=== PATIENT | female | born 1990 | race African-American/Black ===

== ENCOUNTER 2020-12-18 19:20 | Emergency (ER) | payer OTHER ==
[~2020-12-18] VITALS: Ht 154.9 cm; Wt 62.5 kg
[2020-12-18] MEDS ORDERED: GI COCKTAIL 50ML BTL(HYOSCYAMINE/MAALOX/LIDOCAINE VISCOUS)(1:3:1) PO ONE (20:45)
[2020-12-18] MEDS ORDERED: PANTOPRAZOLE 40MG TAB (PROTONIX) PO ONE (20:45)
[2020-12-18 21:03] LABS: BASO % 0.6 % (0.0-1.0); EOS # 0.1 10^3/uL (0.0-0.5); EOS % 0.9 % (0.0-3.0); HEMATOCRIT 38.8 % (36.0-47.0); HEMOGLOBIN 12.2 g/dl (12.0-15.5); LYMPH # 3.8 10^3/uL (1.5-5.0); LYMPH % 56.4 % (24.0-44.0); MEAN CORPUSCULAR HEMOGLOBIN 28.3 pg (27.0-33.0); MEAN CORPUSCULAR HGB CONC 31.4 g/dl (32.0-36.5); MONO # 0.4 10^3/uL (0.0-0.8); MONO % 6.5 % (2.0-8.0); NEUTROPHILS # 2.4 10^3/uL (1.5-8.5); NEUTROPHILS % 35.2 % (36.0-66.0); PLATELET COUNT, AUTOMATED 310 10^3/uL (150-450); RED BLOOD COUNT 4.31 10^6/uL (4.00-5.40); WHITE BLOOD COUNT 6.7 10^3/uL (4.0-10.0)
[2020-12-18] MEDS ORDERED: ISOVUE-370 76% 100ML VIAL As Ordered ONE (22:12)
--- NOTE | 2020-12-18 22:48 | REPVR ---
PROCEDURE INFORMATION: Exam: XR Chest, 2 Views Exam date and time: 12/18/2020 8:57 PM Age: 30 years old Clinical indication: Chest pain; Type not specified TECHNIQUE: Imaging protocol: XR of the chest Views: 2 views. COMPARISON: No relevant prior studies available. FINDINGS: Lungs: Unremarkable. No consolidation. Pleural spaces: Unremarkable. No pleural effusion. No pneumothorax. Heart/Mediastinum: Unremarkable. No cardiomegaly. Bones/joints: Unremarkable. IMPRESSION: Negative chest. Electronically signed by: Kirby Balderrama On 12/18/2020 22:48:47 PM
--- NOTE | 2020-12-18 23:13 | REPVR ---
PROCEDURE INFORMATION: Exam: CT Angiography Chest With Contrast Exam date and time: 12/18/2020 11:02 PM Age: 30 years old Clinical indication: Shortness of breath; Additional info: Elev d dimer, pleuritic cp, SOB TECHNIQUE: Imaging protocol: Computed tomographic angiography of the chest with contrast. 3D rendering (Not supervised by radiologist): MIP and/or 3D reconstructed images were created by the technologist. Radiation optimization: All CT scans at this facility use at least one of these dose optimization techniques: automated exposure control; mA and/or kV adjustment per patient size (includes targeted exams where dose is matched to clinical indication); or iterative reconstruction. Contrast material: ISOVUE 370; Contrast volume: 75 ml; Contrast route: INTRAVENOUS (IV); COMPARISON: CR Chest, 2 view PA, Lat 12/18/2020 8:41 PM FINDINGS: Pulmonary arteries: The main pulmonary artery measures 20 mm. No pulmonary embolism is identified. Aorta: The ascending thoracic aorta measures 22 mm. No gross or obvious aortic dissection is identified distal to the mid arch. Artifact and image degradation precludes detailed evaluation of the ascending thoracic aorta. Lungs: Unremarkable. No consolidation. No masses. Pleural spaces: Unremarkable. No pneumothorax. No pleural effusion. Heart: Unremarkable. No cardiomegaly. No pericardial effusion. Mediastinal space: There is soft tissue conforming to the anterior mediastinum consistent with residual thymic tissue. Lymph nodes: Unremarkable. No enlarged lymph nodes. Bones/joints: Unremarkable. No acute fracture. Soft tissues: Metallic foreign bodies extending through the nipples consistent with piercings. IMPRESSION: Negative CTA chest. No pulmonary embolism is identified. Electronically signed by: Kirby Balderrama On 12/18/2020 23:13:15 PM
[2020-12-18] MEDS ORDERED: OMEP-218 PO (23:23)
[2020-12-18 23:35] VITALS: BP 128/93
--- NOTE | 2020-12-19 07:16 | ECGEPIP ---
[facility] - ED Test Date: 2020-12-18 Pat Name: TENA ZAPATA Department: Room: - Gender: Female [employer]: : 1990 Requested By: JUAN M Garnett PA-C Order Number: [id number] Reading MD: Erwin Vazquez Measurements Intervals [place] Rate: 74 P: 72 ID: [id number] QRS: 76 QRSD: 84 T: 45 QT: 364 QTc: 404 Interpretive Statements Sinus rhythm with premature supraventricular and ventricular complexes NO PRIORS FOR COMPARISON Electronically Signed on 12-19-2020 7:16:22 EST by Erwin Vazquez
== END 2020-12-18 23:38 | disposition home or self-care (01) ==
LOC: M ED 19:20
DX: R07.9 Chest pain, unspecified (principal)
CPT/HCPCS: 36415; 71046; 71275; 80047; 84702; 85025; 85379; 93005; 99284; Q9967

== ENCOUNTER 2021-05-17 18:02 | Emergency (ER) | payer OTHER ==
[~2021-05-17] VITALS: Ht 154.9 cm; Wt 61.5 kg
[~2021-05-17 18:02] MED LIST: OMEP-218 PO
[2021-05-17 18:03] VITALS: BP 133/71
== END 2021-05-17 22:53 | disposition left against medical advice (07) ==
LOC: M ED 18:02
DX: Z53.21 Procedure and treatment not carried out due to patient leaving prior to being seen by health care provider (principal)

== ENCOUNTER 2021-08-26 08:27 | Emergency (ER) | payer OTHER ==
[~2021-08-26] VITALS: Ht 154.9 cm; Wt 61.6 kg
[2021-08-26 08:27] VITALS: BP 122/78
--- OUTSIDE RECORDS SUMMARY | 2021-08-26 08:33 | CCD ---
Author Author [facility] Organization [facility] Address Unknown Phone Unavailable Care Team Providers Care Socket Welder Helper Name Role Phone TURRIN, MARKO Unavailable Unavailable TURRIN, MARKO Unavailable Unavailable TURRIN, MARKO Unavailable Unavailable TURRIN, MARKO Unavailable Unavailable Irma WHELAN MD Unavailable Unavailable VENERUSIrma MD Unavailable Unavailable VENEIrma LEI MD Unavailable Unavailable VENEIrma LEI MD Unavailable Unavailable Irma WHELAN MD Unavailable Unavailable Irma WHELAN MD Unavailable Unavailable VENERUIrma Zepeda MD Unavailable Unavailable VENERUSIrma MD Unavailable Unavailable VENEIrma LEI MD Unavailable Unavailable [facility] Unavailable Unavailable Re-disclosure Warning The records that you are about to access may contain information from federally-assisted alcohol or drug abuse programs. If such information is present, then the following federally mandated warning applies: This information has been disclosed to you from records protected by federal confidentiality rules (42 CFR part 2). The federal rules prohibit you from making any further disclosure of this information unless further disclosure is expressly permitted by the written consent of the person to whom it pertains or as otherwise permitted by 42 CFR part 2. A general authorization for the release of medical or other information is NOT sufficient for this purpose. The Federal rules restrict any use of the information to criminally investigate or prosecute any alcohol or drug abuse patient.The records that you are about to access may contain highly sensitive health information, the redisclosure of which is protected by Article 27-F of the [facility] Public Health law. If you continue you may have access to information: Regarding HIV / AIDS; Provided by facilities licensed or operated by the [facility] Office of Mental Health; or Provided by the [facility] Office for People With Developmental Disabilities. If such information is present, then the following [facility] mandated warning applies: This information has been disclosed to you from confidential records which are protected by state law. State law prohibits you from making any further disclosure of this information without the specific written consent of the person to whom it pertains, or as otherwise permitted by law. Any unauthorized further disclosure in violation of state law may result in a fine or usp sentence or both. A general authorization for the release of medical or other information is NOT sufficient authorization for further disc losure. Encounters Encounter Providers Location Date Indications Data Source(s ) Emergency Attender: MARKO JENSENConsultant: [facility] 05/17/2021 10:24:00 PM EDT - 05/18/2021 02:00:00 AM EDT [facility] Patient discharged. Emergency Attender: MILDRED WHELAN MD 10/07 10:34:00 AM EST - 10/07/2020 01:40:00 PM [facility] Patient discharged. Immunizations Vaccine Date Status Description Data Source(s) COVID-19 VACCINE Pfizer 01/28/2021 12:00:00 AM EDT completed [facility] Vaccine Series Complete: NOThis Data was Submitted to [facility] Via [employer]. INFLUENZA VIRUS VACCINE QUADRIVALENT 2019- (6 MOS AN D UP) 10/03/2020 12:00:00 AM EST completed [facility] Medications Medication Brand Name Start Date Product Form Dose Route Admi nistrative Instructions Pharmacy Instructions Status Indications Reaction Description Data Source(s) 20 mg 12/19/2020 12:00:00 AM EST capsule,delayed release (DR/EC) 14 TAKE ONE CAPSULE BY MOUTH EVERY DAY TAKE ONE CAPSULE BY MOUTH EVERY DAY SOLD: 12/19/2020 [facility] Insurance Providers Payer name Policy type / Coverage type Policy ID Covered libertarian ID Covered libertarian's relationship to kwong Policy Kwong Plan Information [facility] [employer] - O/P [id number] 18 [id number] [facility] [employer] [id number] SP [id number] Problems, Conditions, and Diagnoses Code Display Name Description Problem Type Effective Dates Data Source(s) H6123 Impacted cerumen, bilateral Impacted cerumen, bilatera l Diagnosis 05/17/2021 10:24:00 PM EDT [facility] H9203 Otalgia, bilateral Otalgia, bilateral Diagnosis 10:24:00 PM EDT [facility] N8302 Follicular cyst of left ovary Follicular cyst of left ovary Diagnosis 10/07/2020 10:34:00 AM [facility] D252 Subserosal leiomyoma of uterus Subserosal leiomyoma of uterus Diagnosis 10/07/2020 10:34:00 AM [facility] N739 Female pelvic inflammatory disease, unsp ecified Female pelvic inflammatory disease, unspecified Diagnosis 10/07/2020 10:34:00 AM [facility] R102 Pelvic and perineal pain Pelvic and perineal pain Diag nosis 10/07/2020 10:34:00 AM [facility] Surgeries/Procedures No Information Results ID Date Data Source [id number] 05/17/2021 10:24:00 PM EDT [facility] 1 OrderSheet [facility] Emergency Department [address] [place] [address] Phone #: ext- [phone] 05/17/2021 22:04 Patient: TENA YUAN Sex: F : 1990 Age: 31yWEIGHT:58.9 kg (S) HEIGHT:61 inches (S) BMI:24.5ALLERGIES: No Known Drug AllergyCHIEF COMPLAINT: hearing loss, earacheDIAGNOSIS: Impacted cerumenLAB ORDERSOrder Description Priority Entered Acknowledged InitialedDIAGNOSTIC STUDY ORDERSOrder Description Priority Entered Acknowledged InitialedMEDICATION/IV/DRIP/FLUID ORDERSOrder Description Priority Entered Acknowledged Initialed- (mineral oil in 01:28 05/18/2021 01:37 Jyothi,each ear canal) Marko Jensen M.D.;GENERAL ORDERSOrder Description Priority Entered Acknowledged Initialed[Electronically signed by Lety Coleman R.N. (02:05/18/2021)][Electronically signed by Marko Jensen M.D. (02:03 05/18/2021)][Electronically locked by Lety Coleman R.N. (02:05/18/2021)] Name Value Range Interpretation Code Description Data Aruna rce(s) Supporting Document(s) ID Date Data Source [id number] 05/17/2021 10:24:00 PM EDT [place] [address] Medication Reconciliation Report [facility] Emergency Department [address] [place] [address] Phone #: ext- [phone] 05/17/2021 22:04 Patient: TENA YUAN Sex: F : 1990 Age: 31yWeight: 58.9 kgHeight/Length: 61 in.BMI: 24.5ALLERGIES: No Known Drug AllergyThe patient's Home Medications are listed below:CONTINUE TAKING THE FOLLOWING MEDICATIONS: Vitamins/Minerals OralThe source(s) of the original Home Medication information:Not obtained.The following Medications were given to the patient in the Emergency Department:mineral oil Otic soln 30 ml, administered: 01:37 05/18/2021The following Medications were prescribed to the patient:None. Name Value Range Interpretation Code Description Data Aruna rce(s) Supporting Document(s) ID Date Data Source [id number] 05/17/2021 10:24:00 PM EDT [facility] 1 Medication Administration Record [facility] Emergency Department [address] [place] [address] Phone #: ext- [phone] 05/17/2021 22:04 Patient: TENA YUAN Sex: F : 1990 Age: 31yWeight: 58.9 kgHeight/Length: 61 inBMI: 24.5ALLERGIES: No Known Drug Allergy Date/Time Medication Administered Medication OrderedGiven mineral oil * - (mineral oil in each ear canal)01:37 05/18/2021 Dose: 30 ml * Otic Viki Kaplan, Name Value Range Interpretation Code Description Data Aruna rce(s) Supporting Document(s) ID Date Data Source [id number] 05/17/2021 10:24:00 PM EDT [facility] 1 General Instructions [facility] Emergency Department [address] [place] [address] Phone #: ext- [phone] 05/17/2021 22:04 Patient: TENA YUAN Sex: F : 1990 Age: 31yImpacted cerumen right ear and left ear.INSTRUCTIONS (PLEASE USE MINERAL OIL AT NIGHT AND HYDROGEN PEROXIDE IN MORNING FOR NEXT WEEK TO REMOVE EAR WAX; FOLLOW UP WITH ENT IN 1 WEEK IF NOT BETTER).Warnings: Further evaluation is necessary (ENT).GENERAL WARNINGS: Return or contact your physician immediately if your condition worsens orchanges unexpectedly, if not improving as expected, or if other problems arise. Specifically return if pain,vomiting, bleeding, breathing difficulty or fever greater than 102 degrees F and not controlled byacetaminophen or ibuprofen.Your Current Medications: Your current home medications have been reviewed.CONTINUE TAKING THE FOLLOWING MEDICATIONS:Vitamins/Minerals Oral.Follow-up:Return to the emergency department as needed. Follow up with an ear, nose and throat physician (anotolaryngologist) in seven days if not better. Call for an appointment. Reason for referral: evaluation andtreatment. Summary of care provided to patient via paper.Understanding of the discharge instructions verbalized by patient. Expected course of illness, dischargeinstructions, activity level, diet, follow- up appointment and risks and benefits of treatment reviewed withpatient and understanding verbalized. Agrees to plan of care.Follow-up with: [facility], , [id number], [address] [place] [address], ,[place], [address] Follow up in seven days if not better. Call for an appointment. Reason for referral: evaluation andtreatment. Summary of care provided to patient via paper. ADDITIONAL INFORMATIONEarwax Removal 2 General Instructions [facility] Emergency Department [address] [place] [address] Phone #: ext- [phone] 05/17/2021 22:04 Patient: TENA YUAN Sex: F : 1990 Age: 31yThe ear canal makes earwax (cerumen) from the canal's lining. The ears make wax to lubricate andprotect the ear canal. The ear canal is the tube that connects the middle ear to the outside of the ear.The wax protects the ear from bacteria, infection, and damage from water or trauma.The wax that forms in the canal naturally moves toward the outside of the ear and falls out. In somecases, the ear may make too much wax. If the wax causes problems or keeps the healthcare providerfrom seeing into the ear, the extra wax may be removed.Too much wax can affect your hearing. It can cause itching. In rare cases, it can be painful. Don'tremove earwas be removed unless it's causing a problem. Don't stick objects including cotton swabsor cotton into your ear to remove wax unless told to do so by your healthcare provider.Healthcare providers can remove earwax safely. Often irrigation and syringing will help. At timesinstruments or suction are used to remove the wax. It's important to stay still during the procedure toprevent damage to the ear canal. But removing earwax generally doesn't hurt. You will not needanesthesia or pain medicine when the provider removes the earw ax.A number of conditions lead to earwax buildup. These include some skin problems, a narrow earcanal, or ears that make too much earwax. Using cotton swabs in the canal pushes earwax deeperinto the ear and contributes to the buildup of earwax.Home care The healthcare provider may recommend mineral oil or an gwlj-mmc-znbqjxo (OTC) eardrop to use at home to soften the earwax. He or she may also recommend a home irrigation or syringing kit. Use these products only if the provider recommends them. Carefully follow the instructions given. Don't use mineral oil or OTC eardrops if you might have an ear infection or a ruptured 3 General Instructions [facility] Emergency Department [address] [place] [address] Phone #: ext- [phone] 05/17/2021 22:04 Patient: TENA YUAN Sex: F : 1990 Age: 31y eardrum. Tell your healthcare provider right away if you have diabetes or an immune disorder. Don't use cotton swabs in your ears. Cotton swabs may push wax deeper into the ear canal or damage the eardrum. Use cotton gauze or a wet washcloth to gently remove wax on the outside of the ear and around the opening to the ear canal. Don't use any probing device or object such as cotton-tipped swabs or rosa pins to clean the inside of your ears. Don't use ear candles to clean your ears. Candling can be dangerous. It can burn the ear canal. It can also make the condition worse instead of better. Don't use cold water to rinse the ear. This will make you dizzy. If your provider tells you to rinse your ear, use only warm water or follow his or her instructions. Check the ear for signs of infection or irritation listed below under When to seek medical advice.Steps for using eardrops 1. Warm the medicine bottle by rubbing it between your hands for a few minutes. 2. Lie down on your side, with the affected ear up. 3. Place the recommended number of drops in the ear. Wet a cotton ball with the medicine. Gently put the cotton ball into the ear opening.Follow-up careFollow up with your healthcare provider, or as directed.When to seek medical adviceCall the provider right away if you have: Ear pain that gets worse Fever of 100.4FF (38C) or higher, or as directed by your healthcare provider Worsening wax buildup Severe pain, dizziness, or nausea Bleeding from the ear Hearing problems Signs of irritation from the eardrops, such as burning, stinging, or swelling and tenderness 4 General Instructions [facility] Emergency Department [address] [place] [address] Phone #: ext- [phone] 05/17/2021 22:04 Patient: TENA YUAN Sex: F : 1990 Age: 31y Foul-smelling fluid draining from the ear Swelling, redness, or tenderness of the outer ear Headache, neck pain, or stiff neck [phone] [email or web address]. [address] [address], [place] [address]. All rights reserved. This information is not intended as asu bstitute for professional medical care. Always follow your healthcare professional's instructions. You have been given the following additional information: Earwax Removal(Electronically signed by Marko Jensen M.D. 05/18/2021 02:03) Name Value Range Interpretation Code Description Data Aruna rce(s) Supporting Document(s) ID Date Data Source [id number] 05/17/2021 10:24:00 PM EDT [facility] 1 Clinical Report - Nurses [facility] Emergency Department [address] [place] [address] Phone #: ext- [phone] 05/17/2021 22:04 Patient: TENA YUAN Sex: F : 1990 Age: 31yTRIAGEArrived by private vehicle. Historian: patient.Acuity: LEVEL 4.Chief Complaint: LEFT EAR PAIN.Alert. No acute distress.Onset. (2 weeks). ( Patient arrives c/o left ear clog. Pt reports past 2 weeks she has had a clogged leftear with hearing loss. Pt states she is unsure what has clogged it but has tried to flush it out with no relief.Pt noted to be on phone and wearing both sides of ear buds.).Treatment PUTTIER:(saline flush). --00:49 05/18/21 Lety Coleman R.N.00:45 05/18/21. BP: 125/90. MAP: 101. HR: 83. RR: 16. O2 saturation: 100% on room air. Temp: 97.8 F(oral). Pain level now: 08/11. --00:49 05/18/21 Lety Coleman R.N.Weight: 58.9 kg stated. He ight/Length: 61 inches Per Patient. BMI: 24.5. --00:45 05/18/21 Lety Coleman R.N.MedicationsVitamins/Minerals Oral. --00:47 05/18/21 Lety Coleman R.N.AllergiesNo Known Drug Allergy. --00:47 05/18/21 Lety Coleman R.N.PROBLEMS:Ovarian Cyst.Pelvic Inflammatory Disease.Uterine Fibroid. --00:48 05/18/21 Ltey Coleman R.N.HistoryPAST MEDICAL HX: Immunizations: up-to-date.SOCIAL HX: Never smoker. No alcohol use or drug use. She has not traveled outside the [place]Infectious disease exposure: No infectious disease exposure. Patient is not a known carrier of tuberculosis,hepatitis, HIV, MRSA or VRE. Patient is not a known carrier of CRE.SELF HARM ASSESSMENT: Self harm assessment was performed. The patient answered "no" to thequestion(s) "Have you recently felt down, depressed, or hopeless?", "Do you have thoughts of harming orkilling yourself?", "Do you have a plan for harming or killing yourself?", "Have you recently had thoughts 2 Clinical Report - Nurses [facility] Emergency Department [address] [place] [address] Phone #: ext- [phone] 05/17/2021 22:04 Patient: TENA YUAN Sex: F : 1990 Age: 31y about harming or killing others?", "Do you have any dangerous items in your possession?", "Have you noticed less interest or pleasure in doing things?", "Are you here because you tried to hurt yourself?" and "Have you ever tried to hurt yourself before today?". ABUSE ASSESSMENT: Abuse assessment. The patient had positive responses to the question(s) "Do you feel safe in your home?", "Are you afraid to go home?", "Has anyone hurt you or threatened to hurt you?", "Are you afraid of your partner?" and "Have children witnessed violence in the home?". Abuse denied. NUTRITIONAL RISK ASSESSMENT: The nutritional risk assessment revealed no deficiencies. FUNCTIONAL ASSESSMENT: Functional assessment: no impairments noted. LEARNING NEEDS ASSESSMENT: The learning needs assessment revealed no barriers. FALL RISK ASSESSMENT: Fall risk assessment completed. No risk factors identified. SKIN INTEGRITY ASSESSMENT: Skin integrity risk assessment completed. No skin integrity risk identified. --00:49 05/18/21 Lety Coleman R.N. Interventions Identification band on patient. To treatment room. --00:49 05/18/21 Lety Coleman R.N.PHYSICAL ASSESSMENTAmbulatory to room.GENERAL / NEURO / PSYCH: Alert. Appears in no acute distress.HEENT: No facial asymmetry noted. Pupils equal, round and reactive to light. EOM intact. Left earabnormal. Right ear within normal limits. Nares within normal limits. Pharynx within normal limits. ( Ptreports clogged ear with hearing loss x2 weeks).RESPIRATORY: Respirations not labored.CVS: Capillary refill less than 2 seconds.SKIN: Skin is warm and dry. --00:51 05/18/21 Lety Coleman R.N.NURSING PROGRESS NOTESReassurance given. Two patient identifiers checked. Call light placed in reach. Side rails up x 2. Bedplaced in lowest position. Brakes of bed on. --00:49 05/18/21 Lety Coleman R.N. 01:37 05/18/2021 mineral oil * Otic soln [address] Jensen --01:37 05/18/21 Viki Roe.DISPOSITION / DISCHARGE Condition at departure: stable. No learning barriers present. Discharge instructions provided and reviewed with the patient. Reviewed warnings. Reviewed medication(s). Treatments reviewed. Reviewed referral to an ear, nose, and throat specialist (semiconductor bonder). Patient verbalized understanding. Written instructions provided in Samoan. The patient was discharged home. She left ambulatory and via private vehicle. Patient driving. --02:00 05/18/21 Lety Coleman R.N. 3 Clinical Report - Nurses [facility] Emergency Department [address] [place] [address] Phone #: ext- [phone] 05/17/2021 22:04 Patient: TENA YUAN Sex: F : 1990 Age: 31y 01:58 05/18/21. BP: 122/87. HR: 79. RR: 16. O2 saturation: 100%. Temp: 98.3 F. Pain level now 04/11. --02:00 05/18/21 Lety Coleman R.N.Locked/Released at 05/18/2021 02:00 by Lety Coleman R.N. Name Value Range Interpretation Code Description Data Aruna rce(s) Supporting Document(s) ID Date Data Source [id number] 05/17/2021 10:24:00 PM EDT [facility] 1 Clinical Report - Physicians/Mid Levels [facility] Emergency Department [address] [place] [address] Phone #: ext- [phone] 05/17/2021 22:04 Patient: TENA YUAN Sex: F : 1990 Age: 31y Time Seen: 01:06 05/18/2021; initial patient contact. Arrived- By private vehicle. Historian- patient. Disposition decision: 01:52 05/18/2021.HISTORY OF PRESENT ILLNESS Chief Complaint: EARACHE. HEARING LOSS. This started 1.5 weeks ago and is still present. Onset during rest. Modifying factors. Not worsened by anything. Not relieved by anything. Location- left ear. The pain is described as moderate. The patient has had ear pain. She has had moderate left-sided hearing loss. No ear drainage, nasal discharge or congestion, sinus pressure or complaint of foreign body in the ear. No ear trauma, recent barotrauma, tinnitus, sore throat or toothache. No jaw pain or facial pain. Similar symptoms previously. None. Recent medical care: Not recently seen/assessed.REVIEW OF SYSTEMSNo fever, chills, cough, difficulty breathing or chest pain. No headache, eye discomfort, nausea, vomitingor diarrhea. No abdominal pain, difficulty with urination, skin rash, enlarged lymph nodes or joint pain.Has not had decreased oral intake. All other systems reviewed and are negative.PAST HISTORYSee nurses notes. Problems: Ovarian Cyst. Pelvic Inflammatory Disease. Uterine Fibroid. Medications: Vitamins/Minerals Oral. Allergies: No Known Drug Allergy.SOCIAL HISTORYNever smoker. No alcohol use or drug use.ADDITIONAL NOTESThe nursing notes have been reviewed with agreement regarding the chief complaint, HPI, ROS, PMH andpatient medications and allergies. 2 Clinical Report - Physicians/Mid Levels [facility] Emergency Department [address] [place] [address] Phone #: ext- [phone] 05/17/2021 22:04 Patient: TENA YUAN Sex: F : 1990 Age: 31yPHYSICAL EXAMVital Signs: 05/18/2021 00:45 BP: 125/90. MAP: 101. HR: 83. RR: 16. O2 saturation: 100% on room air.Temp: 97.8 F. Pain level now: 08/11. Have been reviewed. Oxygen saturation normal.Appearance: Alert. No acute distress.Eyes: Eyes normal inspection.Ear (left): There is cerumen impaction in the external canal.Ear (right): There is cerumen impaction in the external canal.Throat: Pharynx normal.Skin: Skin warm and dry. Normal skin color. No rash. Normal skin turgor.PROGRESS AND PROCEDURESCourse of Care: 01:48 05/18/21. pt has b/l cerumen impaction, complete impaction; attempt to resolve wmineral oil and irrigation and curette unsuccessful, and too painful for patient; will d/c from ER w cerumenremoval instructions w mineral oil HS and hydrogen peroxide in AM; pt understands instructions andagrees. Patient counseled in person regarding the patient's stable condition, diagnosis and need for follow-up. Patient agrees with plan of care. Disposition: Condition: good and stable. Discharge decision based on the following: patient's condition is stable; patient's condition is improved; patient is ambulatory; patient is active; patient drinking fluids; patient eating; patient's pain is controlled; patient's exam is improved; improving condition on repeat evaluation; social support is good; transportation is available; follow-up is available; clinical impression is consistent with outpatient treatment.CLINICAL IMPRESSION Impacted cerumen right ear and left ear.INSTRUCTIONS (PLEASE USE MINERAL OIL AT NIGHT AND HYDROGEN PEROXIDE IN MORNING FOR NEXT WEEK TO REMOVE EAR WAX; FOLLOW UP WITH ENT IN 1 WEEK IF NOT BETTER). Warnings: Further evaluation is necessary (ENT). GENERAL WARNINGS: Return or contact your physician immediately if your condition worsens or changes unexpectedly, if not improving as expected, or if other problems arise. Specifically return if pain, vomiting, bleeding, breathing difficulty or fever greater than 102 degrees F and not controlled by acetaminophen or ibuprofen. Your Current Medications: Your current home medications have been reviewed. 3 Clinical Report - Physicians/Mid Levels [facility] Emergency Department [address] [place] [address] Phone #: ext- [phone] 05/17/2021 22:04 Patient: TENA YUAN Sex: F : 1990 Age: 31y CONTINUE TAKING THE FOLLOWING MEDICATIONS: Vitamins/Minerals Oral. Follow- up: Return to the emergency department as needed. Follow up with an ear, nose and throat physician (an semiconductor bonder) in seven days if not better. Call for an appointment. Reason for referral: evaluation and treatment. Summary of care provided to patient via paper. Understanding of the discharge instructions verbalized by patient. Expected course of illness, discharge instructions, activity level, diet, follow-up appointment and risks and benefits of treatment reviewed with patient and understanding verbalized. Agrees to plan of care. Follow-up with: ENT [facility], , [id number], [address] [facility] [address], , [place], [address] Follow up in seven days if not better. Call for an appointment. Reason for referral: evaluation and treatment. Summary of care provided to patient via paper.(Electronically signed by Marko Jensen M.D. 05/18/2021 02:03) Name Value Range Interpretation Code Description Data Aruna rce(s) Supporting Document(s) ID Date Data Source [id number] 10/08/2020 12:25:00 PM [facility] [address] [place] [address] PHONE: [phone] FAX: [phone] Name .................. : BENNY Pedro Acct Number.................. : [id number] ROOM. ................. : TR-02 MR Number ................... : [id number] Stay type ............. : E/R Discharge Date......... ... : 10/07/20 Admit Date .... ..... : 10/07/20 Admit Phys .................... : CLEOPATRA MISTRY Date of ....... : 1990 Family Phys ................... : UNKNOWN Phone .................. : [phone] Age ................................ : 30 Film# .................. .:[id number] Sex ................................. : F Unsigned transcriptions are preliminary reports and do not represent a medical or legal document TRANSVAGINAL(NON OB) [id number] COMPLETE:10/07/20 12:38 [facility] [id number] Reason (s): Pelvic Pain TRANSVAGINAL PELVIC ULTRASOUND: HISTORY: Pelvic pain. COMPARISON: None available. FINDINGS: The uterus is normal in size and echotexture, measuring 8.8 cm in sagittal dimension. A fibroid is noted toward the fundus, measuring up to 4.4 cm. Homogeneous endometrium measures 4 mm. No focal endometrial lesion. The right and left ovaries are imaged, both demonstrating normal flow and color Doppler imaging. A 2.5 cm left ovarian cyst is within normal limits given the patient's age group. The right ovary measures 3.4 x 2.4 x 1.6 cm and the left measures 2.4 x 3.2 x 3.1 cm. There is a small amount of physiologic free pelvic fluid. IMPRESSION: 1. 2.5 cm left ovarian cyst, physiologic in this age group. 2. No torsion. 3. Fundal fibroid. Normal endometrium. Electronically Reviewed and Signed By Josue Rasheed MD , 10/08/20 12:25, APM Transcribe Initials: SARAHY , Transcribe Date: 10/07/20 14:52, Dictation Date: Page 1 of 2 [place] [address] PHONE: [phone] FAX: [phone] Name .................. : BENNY Pedro Acct Number.................. : [id number] ROOM. ................. : TR-02 Number ................... : [id number] Stay type ............. : E/R Discharge Date......... ... : 10/07/20 Admit Date ......... : 10/07/20 Admit Phys .................... : CLEOPATRA MISTRY Date of ....... : 1990 Family Phys ................... : UNKNOWN Phone .................. : [phone] Age ................................ : 30 Film# .................. .:[id number] Sex ................................. : F Unsigned transcriptions are preliminary reports and do not represent a medical or legal document TRANSVAGINAL(NON OB) [id number] COMPLETE:10/07/20 12:38 [facility] [address] Reason(s): Pelvic Pain Copy for: FANTASMA MOYA via fax Copy for: EMERGENCY DEPT via modem Copy for: 710 MED REC DISCHARGED Page 2 of 2 Name Value Range Interpretation Code Description Data Aruna rce(s) Supporting Document(s) ID Date Data Source [id number] 10/07/2020 10:34:00 AM EST [facility] 1 OrderSheet [facility] Emergency Department [address] [place] [address] Phone #: ext- [phone] 10/07/2020 10:25 Patient: OSWALDO YUAN Sex: F : 1990 Age: 30yWEIGHT:61.2 kg (S) HEIGHT:61 inches (S) BMI:25.5ALLERGIES: No Known Drug AllergyCHIEF COMPLAINT: pelvic painDIAGNOSIS: Cyst of ovary, Inflammatory disease of female pelvic organs AND/OR tissues, UterineleiomyomaLAB ORDERSOrder Description Priority Entered Acknowledged InitialedCBC w Diff STAT 10:47 10/07/2020 10:48 Kishan Roe;CMP STAT 10:47 10/07/2020 10:48 Kishan Roe;Lipase STAT 10:47 10/07/2020 10:48 Kishan Roe;Urinalysis (Clean STAT 10:47 10/07/2020 10:48 Jyothi,Catch) Kishan COHEN;Lactic Acid STAT 10:47 10/07/2020 10:48 Kishan Roe;Beta-HCG, Qual STAT 10:47 10/07/2020 10:48 Jyothi,Urine Kishan COHEN;Culture, Genital STAT 11:09 10/07/2020 11:14 Kishan Roe;Bacterial Vaginosis STAT 11:09 10/07/2020 11:14 Kishan Roe;Chlamydia/GC STAT 11:09 10/07/2020 11:14 Kishan Roe;DIAGNOSTIC STUDY ORDERSOrder Description Priority Entered Acknowledged Initialed 2 OrderSheet [facility] Emergency Department [address] [place] [address] Phone #: ext- [phone] 10/07/2020 10:25 Patient: OSWALDO YUAN Sex: F : 1990 Age: 30yUS Pelvis STAT 10:47 10/07/2020 Ack'd: 11:01 12:28 Jyothi,(Oxygen?(No)) Viki Davis; Reason for Study: PainUS STAT 11:00 10/07/2020 Ack'd: 11:01 12:28 Jyothi,TRANSVAGINAL Viki Davis(NON OB) PA;(Oxygen?(No)) Reason for Study: Pelvic PainMEDICATION/IV/DRIP/FLUID ORDERSOrder Description Priority Entered Acknowledged InitialedNS IV : Bolus 500 10:47 10/07/2020 10:55 Jyothi,mL, then 150 mL/hr Kishan COHEN;Tylenol PO 1000 10:47 10/07/2020 10:55 Jyothi,mg Kishan Drew PA;Rocephin 13:01 10/07/2020 Ack'd: 13:03 13:09 Jyothi,(250mg/50mL) IVPB Viki Davis50 mg with PA;Dextrose 50 mlspike bag (D5W)Azithromycin PO 13:01 10/07/2020 Ack'd: 13:01 13:02 Jyothi,1000 mg Viki Davis PA;GENERAL ORDERSOrder Description Priority Entered Acknowledged InitialedNPO 10:47 10/07/2020 10:48 Kishan Roe;Saline Lock 10:47 10/07/2020 10:48 Kishan Roe;[Electronically signed by Leona Villa R.N. (13:45 10/07/2020)][Electronically signed by Kishan Moreau (21:48 10/07/2020)][Electronically locked by Leona Villa R.N. (13:45 10/07/2020)] Name Value Range Interpretation Code Description Data Aruna rce(s) Supporting Document(s) ID Date Data Source [id number] 10/07/2020 10:34:00 AM EST [facility] 1 Medication Reconciliation Report [facility] Emergency Department [address] [place] [address] Phone #: ext- [phone] 10/07/2020 10:25 Patient: OSWALDO YUAN Sex: F : 1990 Age: 30yWeight: 61.2 kgHeight/Length: 61 in.BMI: 25.5ALLERGIES: No Known Drug AllergyThe patient's Home Medications are listed below:NONE.The source(s) of the original Home Medication information:Not obtained.The following Medications were given to the patient in the Emergency Department:NS [IV] IV Fluids bolus 1000 mL over 1 hour(s), administered: 10/07/2020 10:55:00 AMTylenol [PO] PO 1000 mg, administered: 10/07/2020 10:55:00 AMNS [IV] IV Fluids bolus 0, then 150 mL/hr, administered: 10/07/2020 11:50:00 AMAzithromycin [PO] PO 1000 mg, administered: 10/07/2020 1:02:00 PMROCEPHIN (250MG/50ML) [IVPB] IVPB bolus 0, then 250 mg 100 mL/hr, administered: 10/07/2020 1:06:00PMThe following Medications were prescribed to the patient:Flagyl 500 mg tablet Take 1 tablet twice a day as directed for 7 days -- Dispense 14 tablet. Refills: 0.Substitution permitted.Pharmacy - [id number] - [address] [place], [place] [id number]. . -- NOEL Odell Name Value Range Interpretation Code Description Data Aruna rce(s) Supporting Document(s) ID Date Data Source [id number] 10/07/2020 10:34:00 AM EST [facility] 1 Medication Administration Record [facility] Emergency Department [address] [place] [address] Phone #: ext- [phone] 10/07/2020 10:25 Patient: OSWALDO YUAN Sex: F : 1990 Age: 30yWeight: 61.2 kgHeight/Length: 61 inBMI: 25.5ALLERGIES: No Known Drug Allergy Date/Time Medication Administered Medication OrderedStart NS [IV] NS IV : Bolus 500 mL, then 15842:55 10/07/2020 Dose: IV Fluids mL/Olivier Petersonn, Bolus: 1000 mL over 1 hour(s)---- Dispensed: 500 mL bagStop Site: #1 left AC11:50 12Viki RoeStart NS [IV] NS IV : Bolus 500 mL, then 58286:50 10/07/2020 Dose: IV Fluids mL/Olivier Petersonn, Rate: 150 mL/hr---- Dispensed: 500 mL bagStop Site: #1 left AC13:40 10/07/2020Leona Villa RRonniNRonniGiven TYLENOL [PO] (APAP) Tylenol PO 1000 mg10:55 10/07/2020 Dose: 1000 mg Viki Trujillo,Start ROCEPHIN (250MG/50ML) [IVPB] Rocephin (250mg/50mL) IVPB 91579:06 10/07/2020 (CEFTRIAXONE SODIUM) mg with Dextrose 50 ml spike Viki Anton, Dose: 250 mg IVPB (D5W)---- Rate: 100 mL/hrStop Dispensed: 50 mL bag13:35 10/07/2020 Site: #1 left Leona Fernandez RTammyGiven AZITHROMYCIN [PO] Azithromycin PO 1000 mg13:02 10/07/2020 Dose: 1000 mg Viki Trujillo, Name Value Range Interpretation Code Description Data Aruna rce(s) Supporting Document(s) ID Date Data Source [id number] 10/07/2020 10:34:00 AM EST [facility] 1 General Instructions [facility] Emergency Department [address] [place] [address] Phone #: ext- [phone] 10/07/2020 10:25 Patient: OSWALDO YUAN Sex: F : 1990 Age: 30yAcute pelvic inflammatory disease.Single follicular left ovarian cyst.Subserous uterine fibroidINSTRUCTIONSWarnings: Further evaluation is necessary in order to conduct further tests. It is very important to follow upwith a healthcare provider.Your Current Medications: .No home medication.Prescription Medications:Flagyl 500 mg tablet Take 1 tablet twice a day as directed for 7 days -- Dispense 14 tablet. Refills: 0.Substitution permitted.Pharmacy - [facility] #[id number] - [address] [place], [place] [id number]. .Follow-up:Follow up with your doctor. Reason for referral: evaluation, treatment and Refer to PURCHASING SPECIALIST for evaluation ofUterine Fibroid. Summary of care provided to patient.Understanding of the discharge instructions verbalized by patient. ADDITIONAL INFORMATIONOvarian Cysts 2 General Instructions [facility] Emergency Department [address] [place] [address] Phone #: ext- [phone] 10/07/2020 10:25 Patient: OSWALDO YUAN Sex: F : 1990 Age: 30yThe ovaries are two small organs located on each side of a woman's uterus (womb). They are part ofthe female reproductive system. Ovarian cysts are sacs filled with fluid or tissue that form on or insidethe ovaries.Ovarian cysts are common in women, especially during childbearing years. There are different typesof cysts. Most are harmless (benign) and go away on their own. They often cause no symptoms. Ifsymptoms do occur, they can include mild pain or pressure in the lower belly (abdomen).Cysts that are large or break (rupture) may cause more severe pain and symptoms. In these cases,you may need hospital care or treatment such as surgery. You may need more extensive treatment ifa cyst causes an ovary to twist (called torsion) or if your doctor suspects your cyst is cancerous. Keepin mind that most cysts are not cancerous, however.General care To help relieve pain, your healthcare provider may recommend using dbgl-fmf-suveqna pain medicine. If needed, your provide may prescribe stronger pain medicine. Depending on the type of cyst you have, your healthcare provider may advise taking control pills. These help shrink cysts in certain cases. They may also help prevent new cysts from forming. Be sure to take these medicines as directed if they are prescribed. Your healthcare provider may advise you to watch your symptoms over time to see if they go away or worsen. Regular ultrasound tests may also be advised. These can help check if a cyst goes away or grows in size.Follow-up careFollow up with your healthcare provider, or as advised. 3 General Instructions [facility] Emergency Department [address] [place] [address] Phone #: ext- [phone] 10/07/2020 10:25 Patient: OSWALDO YUAN Sex: F : 1990 Age: 30yWhen to seek medical adviceCall your healthcare provider right away if any of these occur: Pain worsens or fails to get better with home treatment Fever of 100.4F (38C) or higher (or other fever amount directed by your healthcare provider) Nausea and vomiting Weakness, dizziness, or fainting Abnormal vaginal bleeding [phone] [employer]. [address] [place] [address]. All rights reserved. This information is not intended as asubstitute for professional medical care. Always follow your healthcare professional's instructions.Pelvic Inflammatory Disease (PID)Pelvic inflammatory disease (PID) is an infection of the female reproductive organs. These includethe vagina, cervix, uterus, fallopian tubes, and ovaries.PID is a common problem among women. It is most often caused by gonorrhea or chlamydia. Theseare bacterial infections that are spread through sex. For this reason, they are known as sexuallytransmitted diseases (STDs). PID can also be caused by other infections, though this is much lesscommon.When PID is found and treated early, it can often be cured. If not treated promptly, PID can lead toserious health problems. These include chronic pelvic pain and damage to the reproductive organs. 4 General Instructions [facility] Emergency Department [address] [place] [address] Phone #: ext- [phone] 10/07/2020 10:25 Patient: OSWALDO YUAN Sex: F : 1990 Age: 30yPID can also lead to infertility. And it can increase the risk of tubal . Mild cases of PID canoften be treated at home. Severe cases of PID may need to be treated in the hospital.Home care You will likely be prescribed a combination of antibiotics. Be sure to take the medicines exactly as directed. To help relieve pain, you may take iviw-zld-ecoedhf pain medicine. Pain medicine may also be prescribed, if needed. Inform any partners you've had sex with about your condition. They will need to be tested for infection and treated as well. Don't have sex until you and any partners have finished treatment and tests show that you are no longer infected.Prevention If you choose to have sex, make sure to practice safer sex. For instance, have sex with only one partner who only has sex with you. Ask your partner to be tested for STDs. Each time you have sex, use latex condoms. These help reduce the risk of STDs. Don't douche unless advised to by your healthcare provider. Douching may increase the risk of PID.Follow-up careFollow up with your healthcare provider, or as advised.When to seek medical adviceCall your healthcare provider right away if any of these occur: Fever of 100.4F (38C) or higher, or as directed by your healthcare provider Symptoms do not improve after 3 days of treatment New or increasing pain in your lower belly or back Abnormal vaginal bleeding Abnormal vaginal discharge Weakness, dizziness or fainting Nausea or vomiting 5 General Instructions [facility] Emergency Department [address] [place] [address] Phone #: ext- [phone] 10/07/2020 10:25 -- Patient: OSWALDO YUAN Sex: F : 1990 Age: 30y Trouble with urination or pain and burning during urination Rash or joint pain Painful open sores around the vagina Swollen or painful lymph nodes in the groin (these may be felt as lumps in the groin)ResourcesTo learn more about PID and STDs, contact: The [facility] National STD Hotline, , www.cdc.gov/std/ 6800-3742 [employer]. [address] [place] [address], [place] [address]. All rights reserved. This information is not intended as asubstitute for professional medical care. Always follow your healthcare professional's instructions.Uterine FibroidsFibroids are lumps (growths) of muscle tissue. They can form in the wall of uterus (womb). Fibroidsare very common. They are almost always benign (non cancerous). It is not known what causesfibroids. But they may run in families. Also, changes in female hormones may cause them to growover time. After menopause, fibroids may stop growing, shrink, or go away.Fibroids may or may not cause symptoms. This depends on many factors, such as the size, number,and locations of the fibroids. If symptoms do occur, they can include: 6 General Instructions [facility] Emergency Department [address] [place], [place] [id number] Phone #: ext- [phone] 10/07/2020 10:25 [id number] Sex[facility] F : 1990 Age: 30y Heavy bleeding (in severe cases, this may lead to a problem called anemia) or painful periods Feeling of fullness, swelling, pressure, or pain in the lower belly (abdomen) or pelvic region Lower back pain Frequent urination Constipation Pain during sex Problems getting If fibroids are suspected, an evaluation will be done to help understand the extent of the problem.This can include a health history, exam, and tests. Based on the results, treatment can then beplanned if needed.Until more details are known about your problem, you may be given guidelines similar to the homecare instructions below.Home care To help control pain, toms-cbw-hazpmqp pain medicine may be advised. Take these only as directed by your provider. If you have heavy or painful periods, keep a log of your menstrual cycle. Show the log to your provider. The information may help him or her determine if your symptoms are due to fibroids or another cause. Make certain lifestyle changes. This may include losing excess weight, being more active, or eating less red meat. These changes may help lower the risk of fibroids in some people. They may also help improve overall health.Follow-up careFollow up with your healthcare provider as advised. If testing was done, you'll be told the res ultswhen they are ready. Treatment options for fibroids may include medicines or procedures to helpshrink or keep fibroids from growing. In severe cases, surgery may be needed to remove fibroids or toremove the uterus. If you have fibroids but no symptoms, you may not need treatment at all.However, your provider may advise regular follow-up to check fibroid size and growth.When to seek medical adviceCall your healthcare provider right away if any of these occur: Heavy bleeding or painful periods that continue or don't get better with treatment 7 General Instructions [facility] Emergency Department [address] [place] [address] Phone #: fvs- [phone] 10/07/2020 10:25 Patient: OSWALDO YUAN Sex: F : 1990 Age: 30y Signs of anemia such as extreme fatigue, pale skin, shortness of breath with little exertion, or rapid heartbeat Weakness, dizziness, or fainting Severe pain in the pelvic or belly region Swollen or enlarged belly [phone] [employer]. [address] [place] [address], [place] [id number]. All rights reserved. This information is not intended as asubstitute for professional medical care. Always follow your healthcare professional's instructions. You have been given the following additional information: Ovarian Cyst Pelvic Inflammatory Disease Uterine Fibroids(Electronically signed by NOEL Odell 10/07/2020 21:48) Name Value Range Interpretation Code Description Data Aruna rce(s) Supporting Document(s) ID Date Data Source [id number] 10/07/2020 10:34:00 AM EST [facility] 1 Clinical Report - Nurses [facility] Emergency Department [address] [place] [address] Phone #: ext- [phone] 10/07/2020 10:25 Patient: OSWALDO YUAN Sex: F : 1990 Age: 30yTRIAGEArrived by private vehicle. Historian: patient.Triage time: 10:27 10/07/2020. Acuity: LEVEL 3.Chief Complaint: ABDOMINAL PAIN.10:27 10/07/20. Alert. No acute distress.This started last night. ( Supra pubic sharp pain last night, pain lasts from 20 minutes to 1 hour, similarpain 1 month ago intermittent).Treatment PUTTIER:Took ibuprofen.SEPSIS SCREEN: SIRS Screen negative. Sepsis Screen negative. No suspected or confirmed signs ofinfection present. --10:39 10/07/20 Daisy Del Rosario RN10:32 10/07/20. BP: 118/75. MAP: 89. HR: 76. RR: 17. O2 saturation: 100%. Temp: 98.8 F. Pain levelnow: 0/10. Pain level at maximum: 10/10. No radiation noted. It is not worsened by anything. It is relievedby lbmu-aro-uabbdio medication. --10:39 10/07/20 Daisy Del Rosario RN.Weight: 61.2 kg stated. Height/Length: 61 inches Per Patient. BMI: 25.5. --10:30 10/07/20 DEMI Maddox.MedicationsNone. --10:34 10/07/20 Daisy Del Rosario RN.AllergiesNo Known Drug Allergy. --10:34 10/07/20 Daisy Del Rosario RN.PROBLEMS:no known problems.ADDITIONAL SURGERIES:no known surgeries.Ddwthsx16:27 10/07/20.PAST MEDICAL HX: Immunizations: up-to-date. Last normal menstrual period was 3 weeks ago. Usesbirth control pills. Last oral intake by patient was breakfast.SOCIAL HX: Never smoker. No alcohol use or drug use. No recent travel. No known contact with a sick 2 Clinical Report - Nurses [facility] Emergency Department [address] [place] [address] Phone #: ext- [phone] 10/07/2020 10:25 Patient: OSWALDO YUAN Sex: F : 1990 Age: 30y individual. The patient was offered HIV testing but declined and hepatitis C testing but declined. The patient has not traveled outside the [place] Infectious disease exposure: No infectious disease exposure. (Negative COVID-19 screen). Patient is not a known carrier of tuberculosis, hepatitis, HIV, MRSA or VRE. Patient is not a known carrier of CRE. ABUSE ASSESSMENT: Abuse assessment. The patient had positive responses to the question(s) "Do you feel safe in your home?" (yes). No report of abuse. NUTRITIONAL RISK ASSESSMENT: The nutritional risk assessment revealed no deficiencies. FUNCTIONAL ASSESSMENT: Functional assessment: no impairments noted. LEARNING NEEDS ASSESSMENT: The learning needs assessment revealed no barriers. SKIN INTEGRITY ASSESSMENT: Skin integrity risk assessment completed. No skin integrity risk identified. --10:39 10/07/20 Daisy Del Rosario RN late entry - 11:00 10/07/20. SELF HARM ASSESSMENT: Self harm assessment was performed. The patient answered "no" to the question(s) "Have you recently felt down, depressed, or hopeless?" and "Do you have thoughts of harming or killing yourself?". FALL RISK ASSESSMENT: Fall risk assessment compl eted. No risk factors identified. --11:37 10/07/20 Viki Roe. Interventions 10:27 10/07/20. To treatment room. Ambulatory by hospital staff. to room 2. --10:39 10/07/20 Daisy Del Rosario RN.PHYSICAL ASSESSMENT( Pt states pain feels like severe period cramps when it occurs, and lasts for about an hour. States lastoccurrence of pain was 2 days ago, and the same pain occurred 3 weeks ago during her menstrualperiod.).GENERAL / NEURO / PSYCH: Alert. Oriented X 4. Appears in no acute distress.HEENT: Mucous membranes are pink.RESPIRATORY: Respirations not labored. Breath sounds within normal limits.CVS: Normal sinus rhythm noted. Capillary refill less than 2 seconds.GI / : Abdomen soft and nontender. Bowel sounds within normal limits.SKIN: Skin is warm and dry. --10:44 10/07/20 Viki Roe.NURSING PROGRESS NOTES10:27 10/07/20. Monitoring of patient in place. Patient gowned. Two patient identifiers checked. Calllight placed in reach. Side rails up x 1. Bed placed in lowest position. Brakes of bed on. Patient ready 3 Clinical Report - Nurses [facility] Emergency Department [address] [place] [address] Phone #: ext- [phone] 10/07/2020 10:25 Patient: OSWALDO YUAN Sex: F : 1990 Age: 30yfor evaluation- ED physician and PA notified. --10:39 10/07/20 Daisy Del Rosario RN10:40 10/07/2020 Site #1 started via IV in the left antecubital space with an 20g angiocath, with aseptictechnique and good blood return; one attempt. Blood drawn: rainbow set. Saline lock flushed. --10:5510/07/20 Jose Ramon Roe0:55 10/07/2020 Started bag #1 500 mL IV Fluids NS; bolus of 1000 mL over 1 hour(s) via site #1 via IVpump. Allergies verified and confirmed 5 rights. IV patency established. IV site checked: no pain, redness,or swelling. IV flushed thoroughly pre- and post-medication administration. Information reviewed withpatient including reason for taking this medication, signs of allergic reaction and precautions. Verbalizesunderstanding. --10:55 10/07/20 Jose Ramon Roe0:55 10/07/2020 Tylenol (APAP) PO 1000 mg given. Allergies verified and confirmed 5 rights. Informationreviewed with patient including reason for taking this medication, signs of allergic reaction and precautions.Verbalizes understanding. --10:55 10/07/20 Denys Roe provided for the general and pelvic exam by the physician. ( NOEL Lao. Cultures collected.Copious discharge noted on visualization.). --11:19 10/07/20 Jose Ramon Roe1:32 10/07/2020 IV Fluids NS via IV site #1 Rate Changed: bag #1 decreased to 150 mL/hr via IV pump.Confirmed 5 Rights. IV patency established. IV site checked: no pain, redness, or swelling. IV flushedthoroughly. --11:32 10/07/20 Ignacia Layton R.N.11:34 10/07/20. BP: 120/79. MAP: 92. HR: 71. RR: 15. O2 saturation: 100%. Pain level now: 0/10.--11:35 10/07/20 Tanja Roeeassurance given.Rounding: Pain: denies pain. Position: states comfortable. Personal care / toileting: denies toileting needs.Proximity of possessions / care items: call light within easy reach. Plug ins: assured IV pump plugged in;checked status of equipment in use; located all cords, tubes, and lines to prevent fall hazard. The patientreports no complaints. --11:35 10/07/20 Jose Ramon Roe1:50 10/07/2020 Started bag #1 500 mL IV Fluids NS; at 150 mL/hr via site #1 via IV pump. Allerg iesverified and confirmed 5 rights. IV patency established. IV site checked: no pain, redness, or swelling. IVflushed thoroughly pre- and post-medication administration. Information reviewed with patient includingreason for taking this medication, signs of allergic reaction and precautions. Verbalizes understanding.--11:50 10/07/20 Jose Ramon Roe1:50 10/07/2020 IV Fluids NS via IV site #1 Discontinued: completed. Total amount infused: 500 mL. IVpatency established. IV site checked: no pain, redness, or swelling. IV flushed thoroughly. --11:50 10/07/20[facility] --12:10/07/20 Viki Roe 4 Clinical Report - Nurses [facility] Emergency Department [address] [place] [address] Phone #: ext- [phone] 10/07/2020 10:25 Patient: OSWALDO YUAN Sex: F : 1990 Age: 30yPatient walked back from sonogram with mask and tech. --12:43 10/07/20 Olivier RoenReassurance given.Rounding: Pain: assessed pain level. Position: states comfortable. Personal care / toileting: denies toiletingneeds. Proximity of possessions / care items: call light within easy reach. Plug ins: assured IV pumpplugged in; checked status of equipment in use; located all cords, tubes, and lines to prevent fall hazard.The patient reports no complaints. --12:44 10/07/20 Jose Ramon Roe2:43 10/07/20. BP: 117/81. MAP: 93. HR: 68. RR: 16. O2 saturation: 100%. Pain level now: 0/10.--12:44 10/07/20 Jose Ramon Roe3:02 10/07/2020 Azithromycin PO 1000 mg given. Allergies verified and confirmed 5 rights. Informationreviewed with patient including reason for taking this medication, signs of allergic reaction and precautions.Verbalizes understanding. --13:02 10/07/20 Jose Ramon Roe3:06 10/07/2020 Started 250 mg of ROCEPHIN (250MG/50ML) (cefTRIAXone Sodium) IVPB in bag #150 mL; at 100 mL/hr via site #1. via IV pump. Allergies verified and confirmed 5 rights. IV patencyestablished. IV site checked: no pain, redness, or swelling. IV flushed thoroughly pre- and post-medicationadministration. Information reviewed with patient including reason for taking this medication, signs ofallergic reaction and precautions. Verbalizes understanding. --13:09 10/07/20 Jose Ramon Roe3:35 10/07/2020 ROCEPHIN (250MG/50ML) IVPB via IV site #1 Discontinued: bag #1 completed. Totalamount infused: 50 mL. IV patency established. IV site checked: no pain, redness, or swelling. IV flushedthoroughly. --13:43 10/07/20 Leona Villa R.N.13:40 10/07/2020 IV Fluids NS via IV site #1 Discontinued: bag #1 STOPPED upon discharge. Totalamount infused: 950 mL. IV patency established. IV site checked: no pain, redness, or swelling. IV flushedthoroughly. --13:43 10/07/20 Leona Villa R.N.13:40 10/07/2020 Azithromycin PO Response: no adverse reaction. --13:43 10/07/20 Lenoa Villa R.N.12:00 10/07/20. BP: 118/76. MAP: 90. HR: 74. O2 saturation: 100%. --13:44 10/07/20 Leona Villa R.N.13:00 10/07/20. BP: 113/69. MAP: 83. HR: 73. O2 saturation: 100%. --13:44 10/07/20 Leona Villa R.N.13:30 10/07/20. BP: 116/77. MAP: 90. HR: 79. O2 saturation: 100%. --13:44 10/07/20 Leona Villa R.N.DISPOSITION / DISCHARGE 5 Clinical Report - Nurses [facility] Emergency Department [address] [place] [address] Phone #: ext- [phone] 10/07/2020 10:25 Patient: OSWALDO YUAN Sex: F : 1990 Age: 30y Departure time: late entry - 13:40 10/07/2020. Condition at departure: improved and stable. No learning barriers present. Discharge instructions provided and reviewed with the patient. Reviewed warnings (please see paper copy). Reviewed medication(s) (Flagyl). Reviewed referrals (PURCHASING SPECIALIST). Patient verbalized understanding. Written instructions provided in Samoan. The patient was discharged by the physician workforce development assistant. She was discharged home and unaccompanied at time of discharge. She left ambulatory and via private vehicle. Patient driving. --13:45 10/07/20 Leona Villa R.N. 13:40 12/06/20. BP: 117/83. MAP: 94. HR: 71. RR: 18. O2 saturation: 100% on room air. Temp: 98.8 F (oral). Pain level now: 11/11. --13:45 10/07/20 Leona Villa R.N. 13:40 10/07/2020 Site #1 removed upon discharge. Bandage applied (2x2 and tape, no bleeding noted, pt tolerated well, clean dry and intact upon d/c.). --13:45 10/07/20 Leona Villa R.N.Locked/Released at 10/07/2020 13:45 by Leona Villa R.N. Name Value Range Interpretation Code Description Data Aruna rce(s) Supporting Document(s) ID Date Data Source [id number] 10/07/2020 10:34:00 AM [facility] 1 Clinical Report - Physicians/Mid Levels [facility] Emergency Department [address] [place] [address] Phone #: ext- [phone] 10/07/2020 10:25 [id number] Sex[facility] F : 1990 Age: 30y Time Seen: 10:45 10/07/2020. Arrived- By private vehicle. Historian- patient.HISTORY OF PRESENT ILLNESS Chief Complaint: PELVIC PAIN suprapubic pain. This started 1 months ago; Supra pubic sharp pain last night, pain lasts from 20 minutes to 1 hour, similar pain 1 month ago intermittent) and is now gone. It was abrupt in onset and has been intermittent. It is described as "pain", sharp, stabbing and cramping and it is described as located in the suprapubic area. At its maximum, severity described as severe. When seen in the E.D., it was almost gone. No nausea, loss of appetite, vomiting or diarrhea. Similar symptoms previously. Patient has had similar symptoms several times. Recent medical care: Not recently seen/assessed.REVIEW OF SYSTEMSLast normal menstrual period- 3 weeks ago. Uses depo implants. No constipation, black stools,hematemesis, difficulty with urination or pain with urination. No urinary frequency, bloody stools, fever,headache or sore throat. No blurred vision, chest pain, difficulty breathing, cough or joint pain. No skinrash, chills or back pain. The patient has had irregular periods but not had weight loss.PAST HISTORYProblems:no known problems. Additional Surgeries: no known surgeries. Medications: None. Allergies: No Known Drug Allergy.SOCIAL HISTORYNever smoker. No alcohol use or drug use.PHYSICAL EXAMVital Signs: 10/07/2020 10:32 BP: 118/75. MAP: 89. HR: 76. RR: 17. O2 saturation: 100%. Temp: 98.8 F.Pain level now: 0/10. Have been reviewed as normal. Oxygen saturation normal.Appearance: Alert. Oriented X3. No acute distress.Eyes: Pupils equal, round and reactive to light. Eyes normal inspection.ENT: Ears normal. Nose normal. Pharynx normal. 2 Clinical Report - Physicians/Mid Levels [facility] Emergency Department [address] [place] [address] Phone #: ext- [phone] 10/07/2020 10:25 Patient: OSWALDO YUAN Sex: F : 1990 Age: 30y Neck: Normal inspection. Neck supple. CVS: Normal heart rate. Respiratory: No respiratory distress. Abdomen: Soft and nontender. Bowel sounds normal. No organomegaly. No mass. Back: Normal inspection. : Normal external exam. A moderate amount of thick, white and yellow vaginal discharge present. Tenderness present on bimanual exam. (friable cervix). Skin: Skin warm and dry. Normal skin color. No rash. Normal skin turgor. Extremities: Extremities exhibit normal ROM. Neuro: Oriented X 3.LABS, X-RAYS, AND EKGPelvic Sonogram: An ovarian cyst is present. A uterine fibroid is present. 2.5 cm L ovarian cyst, notorsion. fibroid uterus, normal endometrium. Study type: transvaginal evaluation. The study wasinterpreted by the radiologist and contemporaneously by me. Interpretation time: 13:22 10/07/2020.Laboratory Tests: Laboratory tests have been ordered, with results reviewed and considered in themedical decision making process. US TRANSVAGINAL (NON OB): (BRIONNA: 10/07/2020 11:00) ( MsgRcvd 10/07/2020 12:38) In Progress US TRANSVAGINAL(NON OB) Reason(s): Pelvic Pain TRANSPORTATION: IV? O2? Oxygen?(No) Room: ED CBC w Diff: (BRIONNA: 10/07/2020 10:38) ( MsgRcvd 10/07/2020 11:06) Final results Test Result Flag Units (Reference) CBC W/AUTOMATED DIFF COMPLETE BLOOD COUNT WBC 6.2 10/uL (4.2 - 11.0) RBC 4.18 L 10/uL (4.20 - 5.40) HEMOGLOBIN 12.1 g/dL (12.0 - 16.0) HEMATOCRIT 36.7 L % (37.0 - 47.0) MCV 87.8 fL (81.0 - 101) MCH 28.9 pg (27.0 - 34.0) MCHC 33.0 g/dL (31.0 - 36.0) RDW 12.5 % (11.5 - 14.5) PLATELETS 268 10/uL (150 - 450) MPV 9.3 fL (7.4 - 10.4) NEUT 38.1 % (37.0 - 80.0) LYMPH 51.3 H % (25.0 - 40.0) MONO 8.4 H % (3.0 - 8.0) EOS 1.1 % (0.0 - 7.0) BASO 0.8 % (0.0 - 2.5) %IG 0.3 H % (0.0 - 0.0) %NRBC 0.0 % (0.0 - 0.0) #NEUT 2.37 10/uL (2.00 - 6.90) #LYMPH 3.19 10/uL (0.60 - 3.40) #MONO 0.52 10/uL (0.00 - 0.90) #EOS 0.07 10/uL (0.00 - 0.70) #BASO 0.05 10/uL (0.00 - 0.20) #IG 0.02 10/uL (0.00 - 0.10) #NRBC 0.00 10/uL (0.00 - 0.00) MANUAL DIFF NOT INDICATED 3 Clinical Report - Physicians/Mid Levels [facility] Emergency Department [address] [place] [address] Phone #: ext- [phone] 10/07/2020 10:25 Patient: OSWALDO YUAN Sex: F : 1990 Age: 30y RBC MORPH NOT INDICATEDCMP: (BRIONNA: 10/07/2020 10:38) ( MsgRcvd 10/07/2020 11:30) Final results Test Result Flag Units (Reference) COMPREHENSIVE METABOLIC PANEL COMPREHENSIVE METABOLIC PANEL SODIUM 133 L mEq/L (134 - 153) POTASSIUM 3.9 mEq/L (3.6 - 5.0) CHLORIDE 97 L mEq/L (98 - 107) CO2 30 MEQ/L (22 - 30) GLUCOSE 84 MG/DL (65 - 110) BUN 12 MG/DL (7 - 21) CREATININE 0.7 MG/DL (0.7 - 1.5) BUN/CREAT 17 (8 - 27) TOTAL PROTEIN 6.8 G/DL (6.3 - 8.2) ALBUMIN 4.3 G/DL (3.9 - 5.0) GLOBULIN 2.5 GM/DL (2.4 - 3.2) A/G RATIO 1.7 (0.8 - 2.0) CALCIUM 9.7 MG/DL (8.4 - 10.2) TOTAL BILI <0.7 MG/DL (0.2 - 1.3) ALKALINE PHOS 42 U/L (38 - 126) SGOT/AST 25 U/L (5 - 40) SGPT/ALT 16 U/L (7 - 56) ANION GAP 6.0 L mmol/L (8.0 - 16.0) AGE 30 yrs NON-AA GFR >60 mL/min AFR AMER GFR >60 mL/min Male GFR Interprentation 20-49 yrs >60 mL/min Qvmcay79-18 yrs >56 mL/min Normal 60-69 yrs >49 mL/min Normal 70-79yrs>42 mL/min Normal 80 and above >35 mL/min Normal Female GFRInterpretation 20-39 yrs >60 mL/min Normal 40-49 yrs >58 mL/minNormal 50-59 yrs >51 mL/min Normal 60-69 yrs >45 mL/min Qozbzp87-33 yrs >39 mL/min Normal 80 and above >32 mL/min NormalLipase: (BRIONNA: 10/07/2020 10:38) [facility] 11:31) Final results Test Result Flag Units (Reference) LIPASE 24 U/L (13 - 60)Urinalysis: (BRIONNA: 10/07/2020 10:00) ( [facility] 10/07/[facility] 11:14) Final results Test Result Flag Units (Reference) URINALYSIS URINALYSIS SOURCE R COLOR yellow (NORMAL: Yello CLARITY clear (NORMAL: Clear SPEC GRAVITY 1.010 (1.001 - 1.030 pH 7 (5 - 9) GLUCOSE NORM (NORMAL: Negat BILIRUBIN NEG (NORMAL: Negat KETONE NEG (NORMAL: Negat PROTEIN NEG (NORMAL: Negat NITRITE NEG (NORMAL: Negat BLOOD NEG (NORMAL: Negat LEUK EST NEG (NORMAL: Negat UROBILINOGEN NOR (less than 1.0 MICROSCOPIC Not Indicate 4 Clinical Report - Physicians/Mid Levels [facility] Emergency Department [address] [place] [address] Phone #: ext- [phone] 10/07/2020 10:25 Patient: OSWALDO YUAN Sex: F : 1990 Age: 30y Lactic Acid: (BRIONNA: 10/07/2020 10:38) ( MsgRcvd 10/07/2020 11:25) Final results Test Result Flag Units (Reference) LACTIC ACID 1.0 MMOL/L (0.2 - 2.2) Beta-HCG, Qual Urine: (BRIONNA: 10/07/2020 10:00) ( MsgRcvd 10/07/2020 12:49) Final results Test Result Flag Units (Reference) HCG URINE QUAL NEGATIVE (NORMAL: NEGAT HCG URINE QL REENTER NEGATIVE (NORMAL: NEGAT { KIT LOT # [id number] ){ KIT EXP DATE 08.07.21 ){ PROCEDURAL CONTROL VALID ) US Pelvis: (BRIONNA: 10/07/2020 10:47) ( MsgRcvd 10/07/2020 12:38) Canceled US PELVIC Reason(s): Pain TRANSPORTATION: WC IV? O2? Oxygen?(No) Room: ED.PROGRESS AND PROCEDURESCourse of Care: 13:Oct 07 2020. Evaluation after observation. (Discussed exam findings and willtreat for PID and pt needs to follow up with PURCHASING SPECIALIST for Fibroids and Ovarian Cyst). Patient counseled in person regarding the patient's stable condition, test results, diagnosis and need for follow-up. Patient agrees with plan of care. 13:Oct 07 2020. Disposition: Discharged home in good and improved condition (13:Oct 07 2020).CLINICAL IMPRESSION Acute pelvic inflammatory disease. Single follicular left ovarian cyst. Subserous uterine fibroidINSTRUCTIONS Warnings: Further evaluation is necessary in order to conduct further tests. It is very important to follow up with a healthcare provider. Your Current Medications: . No home medication. 5 Clinical Report - Physicians/Mid Levels [facility] Emergency Department [address] [place] [address] Phone #: ext- [phone] 10/07/2020 10:25 Patient: OSWALDO YUAN Sex: F : 1990 Age: 30y Prescription Medications: Flagyl 500 mg tablet Take 1 tablet twice a day as directed for 7 days -- Dispense 14 tablet. Refills: 0. Substitution permitted. [id number] [address] [place], [place] [id number]. . Follow-up: Follow up with your doctor. Reason for referral: evaluation, treatment and Refer to PURCHASING SPECIALIST for evaluation of Uterine Fibroid. Summary of care provided to patient. Understanding of the discharge instructions verbalized by patient.(Electronically signed by NOEL Odell 10/07/2020 21:48) Name Value Range Interpretation Code Description Data Aruna rce(s) Supporting Document(s) ID Date Data Source [id number] 10/11/2020 02:41:00 PM EST [facility] Name Value Range Interpretation Code Description Data [facility](s) Supporting Document(s) CULTURE GENITAL [facility] _GENITAL CULTURE_$$[id number]$$[id number]$$ [id number] DATE/TIME: 10/11/2020 14:07Culture: CULTURE GENITAL Status: FinalGenital Culture, Routine: [id number] genital ilsa. Previous result entered on 10/10/2020 16:48 ET Routine genital ilsa.P1 Test performed by: [facility] Moe LIMON #: [id number] [address] [place] [address] [id number] [facility] [id number] Director : Rehan Mc MD NPI #:Developer Relations Manager : 10/11/[email or web address] REF 10/11/[email or web address] REF ID Date Data Source [id number] 10/09/2020 08:36:00 PM [facility] Name Value Range Interpretation Code Description Data Aruna rce(s) Supporting Document(s) Chlamydia trachomatis rRNA [Presence] in Unspecified specimen by Probe and target amplification method Negative Negative [facility] Neisseria gonorrhoeae rRNA [Presence] in Unspecified specimen by Probe and target amplification method Negative Negative [facility] ID Date Data Source [id number] 10/09/2020 08:28:00 PM [facility] Name Value Range Interpretation Code Description Data Aruna rce(s) Supporting Document(s) Janet sp rRNA [Presence] in Vaginal fluid by DNA probe Negative N egative [facility] Gardnerella vaginalis rRNA [Presence] in Genital specimen by DNA probe Negative Negative [facility] Trichomonas vaginalis rRNA [Presence] in Genital specimen by DNA probe Negative Negative [facility] ID Date Data Source [id number] 10/07/2020 11:30:00 AM [facility] Name Value Range Interpretation Code Description Data Aruna rce(s) Supporting Document(s) Lipase [Enzymatic activity/volume] in Serum or Plasma 24 U/L 13 - 60 [facility] ID Date Data Source [id number] 10/07/2020 11:30:00 AM [facility] Name Value Range Interpretation Code Description Data Aruna rce(s) Supporting Document(s) COMPREHENSIVE METABOLIC PANEL [facility] COMPREHENSIVE METABOLIC PANEL Sodium [Moles/volume] in Serum or Plasma 133 mEq/L 134 - 153 L [facility] Potassium [Moles/volume] in Serum or Plasma 3.9 mEq/L 3.6 - 5.0 [facility] Chloride [Moles/volume] in Serum or Plasma 97 mEq/L 98 - 107 L [facility] Carbon dioxide, total [Moles/volume] in Serum or Plasma 30 MEQ/L 22 - 30 [facility] Glucose [Mass/volume] in Serum or Plasma 84 MG/DL 65 - 110 [facility] BUN 12 MG/DL 7 - [facility] Creat[facility] [Mass/volume] in Serum or Plasma 0.7 MG/DL 0.7 - 1.5 [facility] BUN/CREAT 17 8 - 27 [facility] al Protein [Mass/volume] in Serum or Plasma 6.8 G/DL 6.3 - 8.2 [facility] Albumin [Mass/volume] in Serum or Plasma 4.3 G/DL 3.9 - 5.0 [facility] Globulin [Mass/volume] in Serum by calculation 2.5 GM/DL 2.4 - 3.2 [facility] A/G RATIO 1.7 0.8 - 2.0 [facility] Calcium [Mass/volume] in Serum or Plasma 9.7 MG/DL 8.4 - 10.2 [facility] Bilirubin.total [Mass/volume] in Serum or Plasma <0.7 MG/DL 0.2 - 1.3 [facility] Alkaline phosphatase [Enzymatic activity/volume] in Serum or Plasma 42 U/L 38 - 126 [facility] Aspartate aminotransferase [Enzymatic activity/volume] in Serum or Plasma 25 U/L 5 - 40 [facility] Alanine aminotransferase [Enzymatic activity/volume] in Seru m or Plasma 16 U/L 7 - 56 [facility] Anion gap 3 in Serum or Plasma 6.0 mmol/L 8.0 - 16.0 L [facility] AGE 30 yrs [facility] al NON-AA GFR >60 mL/min [facility] ital AFR AMER GFR >60 mL/min [facility] Ho spital Male GFR In terprentation 20-49 yrs >60 mL/min Normal 50-59 yrs >56 mL/min Normal 60-69 yrs >49 mL/min Normal 70-79yrs >42 mL/min Normal 80 and above >35 mL/min Normal Female GFR Interpretation 20-39 yrs >60 mL/min Normal 40-49 yrs >58 mL/min Normal 50-59 yrs >51 mL/min Normal 60-69 yrs >45 mL/min Normal 70-79 yrs >39 mL/min Normal 80 and above >32 mL/min Normal ID Date Data Source [id number] 10/07/2020 11:24:00 AM EST [facility] Name Value Range Interpretation Code Description Data Aruna rce(s) Supporting Document(s) Lactate [Moles/volume] in Serum or Plasma 1.0 MMOL/L 0.2 - 2.2 [facility] ID Date Data Source [id number] 10/07/2020 11:06:00 AM EST [facility] Name Value Range Interpretation Code Description Data Aruna rce(s) Supporting Document(s) CBC W/AUTOMATED DIFF [facility] COMPLETE BLOOD COUNT Leukocytes [#/volume] in Blood by Automated count 6.2 10^3/uL 4.2 - 1 1.0 [facility] Erythrocytes [#/volume] in Blood by Automated count 4.18 10^6/uL 4. 20 - 5.40 L [facility] Hemoglobin [Mass/volume] in Blood 12.1 g/dL 12.0 - 16.0 [facility] Hematocrit [Volume Fraction] of Blood by Automated count 36.7 % 3 7.0 - 47.0 L [facility] Erythrocyte mean corpuscular volume [Entitic volume] by Auto mated count 87.8 fL 81.0 - 101 [facility] Erythrocyte mean corpuscular hemoglobin [Entitic mass] by Automated count 28.9 pg 27.0 - 34.0 [facility] Erythrocyte mean corpuscular hemoglobin concentration [Mass/volume] by Automated count 33.0 g/dL 31.0 - 36.0 [facility] Erythrocyte distribution width [Ratio] by Automated count 12.5 % 11.5 - 14.5 [facility] Platelets [#/volume] in Blood by Automated count 268 10^3/uL 150 - 45 0 [facility] Platelet mean volume [Entitic volume] in Blood by Automated count 9.3 fL 7.4 - 10.4 [facility] Neutrophils/100 leukocytes in Blood by Automated count 38.1 % 37. 0 - 80.0 [facility] Lymphocytes/100 leukocytes in Blood by Manual count 51.3 % 25.0 - 40.0 H [facility] Monocytes/100 leukocytes in Blood by Automated count 8.4 % 3.0 - 8.0 H [facility] Eosinophils/100 leukocytes in Blood by Automated count 1.1 % 0.0 - 7.0 [facility] Basophils/100 leukocytes in Blood by Automated count 0.8 % 0.0 - 2.5 [facility] %IG 0.3 % 0.0 - 0.0 H [facility] al %NRBC 0.0 % 0.0 - 0.0 [facility] al Neutrophils [#/volume] in Blood by Automated count 2.37 10^3/uL 2.00 - 6.90 [facility] Lymphocytes [#/volume] in Blood by Automated count 3.19 10^3/uL 0.60 - 3.40 [facility] Monocytes [#/volume] in Blood by Automated count 0.52 10^3/uL 0.00 - 0.90 [facility] Eosinophils [#/volume] in Blood by Automated count 0.07 10^3/uL 0.00 - 0.70 [facility] Basophils [#/volume] in Blood by Automated count 0.05 10^3/uL 0.00 - 0.20 [facility] #IG 0.02 10^3/uL 0.00 - 0.10 [facility] H ospital #NRBC 0.00 10^3/uL 0.00 - 0.00 [facility] ospital MANUAL DIFF NOT INDICATED [facility] RBC MORPH NOT INDICATED [facility] spital ID Date Data Source [id number] 10/07/2020 12:47:00 PM EST [facility] Name Value Range Interpretation Code Description Data Aruna rce(s) Supporting Document(s) HCG URINE QUAL NEGATIVE NORMAL: NEGATIVE [facility] HCG URINE QL REENTER NEGATIVE NORMAL: NEGATIVE [facility] { KIT LOT # [id number] ){ KIT EXP DATE 08.07.21 ){ PROCEDURAL CONTROL VALID ) ID Date Data Source [id number] 10/07/2020 11:13:00 AM [facility] Name Value Range Interpretation Code Description Data Aruna rce(s) Supporting Document(s) [facility] SOURCE R [facility] al COLOR yellow NORMAL: Yellow [facility] CLARITY clear NORMAL: Clear [facility] spital Specific gravity of Urine by Test strip 1.010 1.001 - 1.030 [facility] pH 7 5 - 9 [facility] al Glucose [Mass/volume] in Urine by Test strip NORM NORMAL: Negat lin [facility] Bilirubin.total [Presence] in Urine by Test strip NEG NORMAL: Negative [facility] Ketones [Presence] in Urine by Test strip NEG NORMAL: Negative [facility] Protein [Mass/volume] in Urine by Test strip NEG NORMAL: Negat lin [facility] Nitrite [Presence] in Urine by Test strip NEG NORMAL: Negative [facility] BLOOD NEG NORMAL: Negative [facility] Leukocyte esterase [Presence] in Urine by Test strip NEG MACHO L: Negative [facility] Urobilinogen [Mass/volume] in Urine by Test strip NOR less jarrod n 1.0 mg/dL [facility] MICROSCOPIC Not Indicate [facility] Procedure Social History No Information
[2021-08-26] MEDS ORDERED: IBUP80TA PO (08:44)
[2021-08-26] MEDS ORDERED: BIRTHCONTROL TD (08:44)
[2021-08-26] MEDS ORDERED: KETOROLAC 60MG 2ML VIAL IM ONE (09:30)
--- NOTE | 2021-08-26 10:24 | REP ---
INDICATION: cramping/heavy bleeding. COMPARISON: None. TECHNIQUE: Transabdominal and transvaginal scanning performed. FINDINGS: Uterine dimensions are 9.0 x 4.2 x 7.1 cm. Endometrial echo is 3 mm in AP dimension and centrally placed. A heterogeneous structure in the right uterus most likely represents a fibroid 4.3 x 5.7 x 4.7 cm. The bladder is empty. The right ovary has dimensions of 3.6 x 1.0 x 2.5 cm. The left ovary dimensions are 2.5 x 2.5 x 1.3 cm. Blood flow seen in each ovary with duplex Doppler evaluation, with no torsion. There is no adnexal mass identified. No free fluid is seen in the cul-de-sac. IMPRESSION: Suspected fibroid right uterus 4.3 x 5.7 x 4.7 cm. The ovaries demonstrate no mass or torsion. No free fluid. Endometrial thickness 3 mm. <Electronically signed by Rickey Tinsley > 08/26/21 [id number]
[2021-08-26] MEDS ORDERED: KETO10TAB PO (10:35)
--- OUTSIDE RECORDS SUMMARY | 2021-08-26 10:49 | CCD ---
Author Author [facility] Organization [facility] Address Unknown Phone Unavailable Care Team Providers Care Cookie Padder Name Role Phone TURRIN, MARKO Unavailable Unavailable TURRIN, MARKO Unavailable Unavailable TURRIN, MARKO Unavailable Unavailable TURRIN, MARKO Unavailable Unavailable Irma WHELAN MD Unavailable Unavailable VENERUSIrma MD Unavailable Unavailable VENEIrma LEI MD Unavailable Unavailable VENEIrma LEI MD Unavailable Unavailable Irma WHELAN MD Unavailable Unavailable Irma WHELAN MD Unavailable Unavailable VENERUSIrma MD Unavailable Unavailable VENERUSIrma MD Unavailable Unavailable VENEIrma LEI MD Unavailable Unavailable [place], [facility] Unavailable Unavailable Re-disclosure Warning The records [...] is protected by Article 27-F of the [facility] Public Health law. If you continue you may have access to information: Regarding HIV / AIDS; Provided by facilities licensed or operated by the [facility] Office of Mental Health; or Provided by the [facility] Office for People With Developmental Disabilities. If such information is present, then the following [facility] mandated warning applies: This information has been [...] law may result in a fine or prison sentence or both. A general authorization for the release of medical or other information is NOT sufficient authorization for further disc losure. Encounters Encounter Providers Location Date Indications Data Source(s ) Emergency Attender: MARKO JENSENConsultant: [facility] 05/17/2021 10:24:00 PM EDT - 05/18/2021 02:00:00 AM EDT [facility] Patient discharged. Emergency Attender: MILDRED WHELAN MD 10/07 10:34:00 AM EST - 10/07/2020 01:40:00 PM [facility] Patient discharged. Immunizations Vaccine Date Status Description Data Source(s) COVID-19 VACCINE Pfizer 01/28/2021 12:00:00 AM EDT completed [facility] Vaccine Series Complete: NOThis Data was Submitted to [facility]. INFLUENZA VIRUS VACCINE QUADRIVALENT 2019- (6 MOS AN D UP) 10/03/2020 12:00:00 AM EST completed [facility] Medications Medication Brand Name Start Date Product Form Dose Route Admi nistrative Instructions Pharmacy Instructions Status Indications Reaction Description Data Source(s) 20 mg 12/19/2020 12:00:00 AM EST capsule,delayed release (DR/EC) 14 TAKE ONE CAPSULE BY MOUTH EVERY DAY TAKE ONE CAPSULE BY MOUTH EVERY DAY SOLD: 12/19/2020 [facility] Insurance Providers Payer name Policy type / Coverage type Policy ID Covered democrat ID Covered democrat's relationship to kwong Policy Kwong Plan Information [facility] [employer] [id number] SP [id number] [facility] HUMANA - O/P [id number] 18 [id number] Problems, Conditions, and Diagnoses Code Display Name Description Problem Type Effective Dates Data Source(s) H6123 Impacted cerumen, bilateral Impacted cerumen, bilatera l Diagnosis 05/17/2021 10:24:00 PM EDT [facility] H9203 Otalgia, bilateral Otalgia, bilateral Diagnosis 10:24:00 PM EDT [facility] N8302 Follicular cyst of left ovary Follicular cyst of left ovary Diagnosis 10/07/2020 10:34:00 AM [facility] D252 Subserosal leiomyoma of uterus Subserosal leiomyoma of uterus Diagnosis 10/07/2020 10:34:00 AM [facility] N739 Female pelvic inflammatory disease, unsp ecified Female pelvic inflammatory disease, unspecified Diagnosis 10/07/2020 10:34:[address] [facility] R102 Pelvic and perineal pain Pelvic and perineal pain Diag nosis 10/07/2020 10:34:00 AM [facility] Surgeries/Procedures No Information Results ID Date Data Source [id number] 05/17/2021 10:24:00 PM EDT [facility] 1 OrderSheet [facility] Emergency Department [address] [place] [address] Phone #: ext- [phone] 05/17/2021 22:04 Patient: [...] rce(s) Supporting Document(s) ID Date Data Source [id number] 05/17/2021 10:24:00 PM EDT [place] [address] Medication Reconciliation Report [facility] Emergency Department [address] [place] [address] Phone #: ext- [phone] 05/17/2021 22:04 Patient: [...] rce(s) Supporting Document(s) ID Date Data Source [id number] 05/17/2021 10:24:00 PM EDT [facility] 1 Medication Administration Record [facility] Emergency Department [address] [place] [address] Phone #: ext- [phone] 05/17/2021 22:04 Patient: TENA YUAN Sex: F : 1990 Age: 31yWeight: 58.9 kgHeight/Length: 61 inBMI: 24.5ALLERGIES: No Known Drug Allergy Date/Time Medication Administered Medication OrderedGiven mineral oil * - (mineral oil in each ear canal)01:37 05/18/2021 Dose: 30 ml * Otic Viki Kaplan, Name Value Range Interpretation Code Description Data Aruna rce(s) Supporting Document(s) ID Date Data Source [id number] 05/17/2021 10:24:00 PM EDT [facility] 1 General Instructions [facility] Emergency Department [address] [place] [address] Phone #: ext- [phone] 05/17/2021 22:04 Patient: [...] Agrees to plan of care.Follow-up with: [facility], , [id number], [address] [place] [address], ,[place], [address] Follow up in seven days if not better. Call for an appointment. Reason for referral: evaluation andtreatment. Summary of care provided to patient via paper. ADDITIONAL INFORMATIONEarwax Removal 2 General Instructions [facility] Emergency Department [address] [place] [address] Phone #: [phone] ext- [phone] 05/17/2021 22:04 Patient: TENA YUAN Sex: F [...] provider may recommend mineral oil or an wrly-nvp-mmcuhyy (OTC) eardrop to use at home to soften the earwax. He or she may also recommend a home irrigation or syringing kit. Use these products only if the provider recommends them. Carefully follow the instructions given. Don't use mineral oil or OTC eardrops if you might have an ear infection or a ruptured 3 General Instructions [facility] Emergency Department [address] [place] [address] Phone #: ext- [phone] 05/17/2021 22:04 Patient: [...] or swelling and tenderness 4 General Instructions [facility] Emergency Department [address] [place] [address] Phone #: ext- [phone] 05/17/2021 22:04 Patient: TENA YUAN Sex: F : 1990 Age: 31y Foul-smelling fluid draining from the ear Swelling, redness, or tenderness of the outer ear Headache, neck pain, or stiff neck [phone] [employer]. [address] [place] [address], [place] [address]. All rights reserved. This information is not intended as asu bstitute for professional medical care. Always follow your healthcare professional's instructions. You have been given the following additional information: Earwax Removal(Electronically signed by Marko Jensen M.D. 05/18/2021 02:03) Name Value Range Interpretation Code Description Data Aruna rce(s) Supporting Document(s) ID Date Data Source [id number] 05/17/2021 10:24:00 PM EDT [facility] 1 Clinical Report - Nurses [facility] Emergency Department [address] [place] [address] Phone #: ext- [phone] 05/17/2021 22:04 Patient: [...] and wearing both sides of ear buds.).Treatment BATTERY INSTALLER:(saline flush). --00:49 05/18/21 Lety Coleman R.N.00:45 05/18/21. [...] R.N.PROBLEMS:Ovarian Cyst.Pelvic Inflammatory Disease.Uterine Fibroid. --00:48 05/18/21 Lety Coleman R.N.HistoryPAST MEDICAL HX: Immunizations: up-to-date.SOCIAL HX: [...] had thoughts 2 Clinical Report - Nurses [facility] Emergency Department [address] [place] [address] Phone #: ext- [phone] 05/17/2021 22:04 Patient: [...] to an ear, nose, and throat specialist (asset administrator). Patient verbalized understanding. Written instructions provided in Bulgarian. The patient was discharged home. She left ambulatory and via private vehicle. Patient driving. --02:00 05/18/21 Lety Coleman R.N. 3 Clinical Report - Nurses [facility] Emergency Department [address] [place] [address] Phone #: ext- [phone] 05/17/2021 22:04 Patient: TENA YUAN Sex: F : 1990 Age: 31y 01:58 05/18/21. BP: 122/87. HR: 79. RR: 16. O2 saturation: 100%. Temp: 98.3 F. Pain level now 04/11. --02:00 05/18/21 Lety Coleman R.N.Locked/Released at 05/18/2021 02:00 by Lety Coleman R.N. Name Value Range Interpretation Code Description Data Aruna rce(s) Supporting Document(s) ID Date Data Source [id number] 05/17/2021 10:24:00 PM EDT [facility] 1 Clinical Report - Physicians/Mid Levels [facility] Emergency Department [address] [place] [address] Phone #: ext- [phone] 05/17/2021 22:04 Patient: [...] allergies. 2 Clinical Report - Physicians/Mid Levels [facility] Emergency Department [address] [place] [address] Phone #: ext- [phone] 05/17/2021 22:04 Patient: [...] reviewed. 3 Clinical Report - Physicians/Mid Levels [facility] Emergency Department [address] [place] [address] Phone #: ext- [phone] 05/17/2021 22:04 Patient: TENA YUAN Sex: F : 1990 Age: 31y CONTINUE TAKING THE FOLLOWING MEDICATIONS: Vitamins/Minerals Oral. Follow- up: Return to the emergency department as needed. Follow up with an ear, nose and throat physician (an asset administrator) in seven days if not better. Call for an appointment. Reason for referral: evaluation and treatment. Summary of care provided to patient via paper. Understanding of the discharge instructions verbalized by patient. Expected course of illness, discharge instructions, activity level, diet, follow-up appointment and risks and benefits of treatment reviewed with patient and understanding verbalized. Agrees to plan of care. Follow-up with: [facility], , [id number], [address], , [place], [address] Follow up in seven days if not better. Call for an appointment. Reason for referral: evaluation and treatment. Summary of care provided to patient via paper.(Electronically signed by Marko Jensen M.D. 05/18/2021 02:03) Name Value Range Interpretation Code Description Data Aruna rce(s) Supporting Document(s) ID Date Data Source [id number] 10/08/2020 12:25:00 PM [facility] [address] [place] [address] PHONE: [phone] FAX: [phone] Name .................. : BENNY Pedro Acct Number.................. : [id number] ROOM. ................. : TR-02 MR Number ................... : [id number] Stay type ............. : E/R Discharge Date......... ... : 10/07/20 Admit Date .... ..... : 10/07/20 Admit Phys .................... : CLEOPATRA MISTRY Date of ....... : 1990 Family Phys ................... : UNKNOWN Phone .................. : [phone] Age ................................ : 30 Film# .................. .:[id number] Sex ................................. : F Unsigned transcriptions are preliminary reports and do not represent a medical or legal document TRANSVAGINAL(NON OB) 13922 COMPLETE:10/07/20 12:38 [facility] 46849 Reason (s): Pelvic Pain TRANSVAGINAL PELVIC ULTRASOUND: [...] 14:52, Dictation Date: Page 1 of 2 [place] [address] PHONE: [phone] FAX: [phone] Name .................. : BENNY Pedro Acct Number.................. : [id number] ROOM. ................. : TR-02 Number ................... : [id number] Stay type ............. : E/R Discharge Date......... ... : 10/07/20 Admit Date ......... : 10/07/20 Admit Phys .................... : CLEOPTARA MISTRY Date of ....... : 1990 Family Phys ................... : UNKNOWN Phone .................. : [phone] Age ................................ : 30 Film# .................. .:[id number] Sex ................................. : F Unsigned transcriptions are preliminary reports and do not represent a medical or legal document TRANSVAGINAL(NON OB) 41290 COMPLETE:10/07/20 12:38 [facility] 19251 Reason(s): Pelvic Pain Copy for: FANTASMA MOYA via fax Copy for: EMERGENCY DEPT via modem Copy for: 710 MED REC DISCHARGED Page 2 of 2 Name Value Range Interpretation Code Description Data Aruna rce(s) Supporting Document(s) ID Date Data Source [id number] 10/07/2020 10:34:00 AM EST [facility] 1 OrderSheet [facility] Emergency Department [address] [place] [address] Phone #: ext- [phone] 10/07/2020 10:25 Patient: [...] Description Priority Entered Acknowledged Initialed 2 OrderSheet [facility] Emergency Department [address] [place] [address] Phone #: ext- [phone] 10/07/2020 10:25 Patient: OSWALDO YUAN Sex: F [...] rce(s) Supporting Document(s) ID Date Data Source [id number] 10/07/2020 10:34:00 AM EST [facility] 1 Medication Reconciliation Report [facility] Emergency Department [address] [place] [address] Phone #: ext- [phone] 10/07/2020 10:25 Patient: [...] Dispense 14 tablet. Refills: 0.Substitution permitted.Pharmacy - [id number] - [address], [place] [id number]. . -- NOEL Odell Name Value Range Interpretation Code Description Data Aruna rce(s) Supporting Document(s) ID Date Data Source [id number] 10/07/2020 10:34:00 AM EST [facility] 1 Medication Administration Record [facility] Emergency Department [address] [place] [address] Phone #: ext- [phone] 10/07/2020 10:25 Patient: OSWALDO YUAN Sex: F : 1990 Age: 30yWeight: 61.2 kgHeight/Length: 61 inBMI: 25.5ALLERGIES: No Known Drug Allergy Date/Time Medication Administered Medication OrderedStart NS [IV] NS IV : Bolus 500 mL, then 68802:55 10/07/2020 Dose: IV Fluids mL/Olivier Petersonn, Bolus: 1000 mL over 1 hour(s)---- Dispensed: 500 mL bagStop Site: #1 left AC11:50 12Viki RoeStart NS [IV] NS IV : Bolus 500 mL, then 36786:50 10/07/2020 Dose: IV Fluids mL/Olivier Petersonn, Rate: 150 mL/hr---- Dispensed: 500 mL bagStop Site: #1 left AC13:40 10/07/2020Leona Villa RRonniNRonniGiven TYLENOL [PO] (APAP) Tylenol PO 1000 mg10:55 10/07/2020 Dose: 1000 mg Viki Trujillo,Start ROCEPHIN (250MG/50ML) [IVPB] Rocephin (250mg/50mL) IVPB 23781:06 10/07/2020 (CEFTRIAXONE SODIUM) mg with Dextrose 50 ml spike Viki Anton, Dose: 250 mg IVPB (D5W)---- Rate: 100 mL/hrStop Dispensed: 50 mL bag13:35 10/07/2020 Site: #1 left Leona Fernandez RTammyGiven AZITHROMYCIN [PO] Azithromycin PO 1000 mg13:02 10/07/2020 Dose: 1000 mg Viki Trujillo, Name Value Range Interpretation Code Description Data Aruna rce(s) Supporting Document(s) ID Date Data Source [id number] 10/07/2020 10:34:00 AM EST [facility] 1 General Instructions [facility] Emergency Department [address] [place] [address] Phone #: ext- [phone] 10/07/2020 10:25 Patient: [...] Dispense 14 tablet. Refills: 0.Substitution permitted.Pharmacy - [id number] - [address], [place] [id number]. .Follow-up:Follow up with your doctor. Reason for referral: evaluation, treatment and Refer to FLOTATION TENDER HELPER for evaluation ofUterine Fibroid. Summary of care provided to patient.Understanding of the discharge instructions verbalized by patient. ADDITIONAL INFORMATIONOvarian Cysts 2 General Instructions [facility] Emergency Department [address] [place] [address] Phone #: ext- [phone] 10/07/2020 10:25 Patient: OSWALDO YUAN Sex: F [...] pain, your healthcare provider may recommend using zclv-fve-ydijths pain medicine. If needed, your provide may [...] provider, or as advised. 3 General Instructions [facility] Emergency Department [address] [place] [address] Phone #: ext- [phone] 10/07/2020 10:25 Patient: [...] Weakness, dizziness, or fainting Abnormal vaginal bleeding [phone] [employer] [place] [address]. All rights reserved. This information is not [...] to the reproductive organs. 4 General Instructions [facility] Emergency Department [address] [place] [address] Phone #: ext- [phone] 10/07/2020 10:25 Patient: [...] To help relieve pain, you may take gvbp-njx-qzhraeg pain medicine. Pain medicine may also be [...] fainting Nausea or vomiting 5 General Instructions [facility] Emergency Department [address] [place] [address] Phone #: ext- [phone] 10/07/2020 10:25 -- Patient: OSWALDO YUAN Sex: F : 1990 Age: 30y Trouble with urination or pain and burning during urination Rash or joint pain Painful open sores around the vagina Swollen or painful lymph nodes in the groin (these may be felt as lumps in the groin)ResourcesTo learn more about PID and STDs, contact: The [facility] National STD Hotline, , www.cdc.gov/std/ 8135-2842 [employer]. [address] [place] [address], [place] [address]. All rights reserved. This information is not [...] occur, they can include: 6 General Instructions [facility] Emergency Department [address] [place], [place] [address] Phone #: ext- [phone] 10/07/2020 10:25 [id number] Sex: F : 1990 Age: 30y Heavy [...] instructions below.Home care To help control pain, azwm-jho-tzkhhfm pain medicine may be advised. Take these [...] get better with treatment 7 General Instructions [facility] Emergency Department [address] [place] [address] Phone #: [phone] xjr- [phone] 10/07/2020 10:25 Patient: OSWALDO YUAN Sex: F : 1990 Age: 30y Signs of anemia such as extreme fatigue, pale skin, shortness of breath with little exertion, or rapid heartbeat Weakness, dizziness, or fainting Severe pain in the pelvic or belly region Swollen or enlarged belly [phone] [employer] [place] [address], [place] [id number]. All rights reserved. This information is not intended as asubstitute for professional medical care. Always follow your healthcare professional's instructions. You have been given the following additional information: Ovarian Cyst Pelvic Inflammatory Disease Uterine Fibroids(Electronically signed by NOEL Odell 10/07/2020 21:48) Name Value Range Interpretation Code Description Data Aruna rce(s) Supporting Document(s) ID Date Data Source [id number] 10/07/2020 10:34:00 AM EST [facility] 1 Clinical Report - Nurses [facility] Emergency Department [address] [place] [address] Phone #: ext- [phone] 10/07/2020 10:25 Patient: OSWALDO YUAN Sex: F : 1990 Age: 30yTRIAGEArrived by private vehicle. Historian: patient.Triage time: 10:27 10/07/2020. Acuity: LEVEL 3.Chief Complaint: ABDOMINAL PAIN.10:27 10/07/20. Alert. No acute distress.This started last night. 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 Sepsis Screen negative. No suspected or confirmed signs ofinfection present. --10:39 10/07/20 Daisy Del Rosario RN10:32 10/07/20. BP: 118/75. MAP: 89. HR: 76. RR: 17. O2 saturation: 100%. Temp: 98.8 F. Pain levelnow: 0/10. Pain level at maximum: 10/10. No radiation noted. It is not worsened by anything. It is relievedby epud-lho-qxjgtly medication. --10:39 10/07/20 Daisy Del Rosario RN.Weight: 61.2 kg stated. Height/Length: 61 inches Per Patient. BMI: 25.5. --10:30 10/07/20 DEMI Maddox.MedicationsNone. --10:34 10/07/20 Daisy Del Rosario RN.AllergiesNo Known Drug Allergy. --10:34 10/07/20 Daisy Del Rosario RN.PROBLEMS:no known problems.ADDITIONAL SURGERIES:no known surgeries.Qqaxqtz95:27 10/07/20.PAST MEDICAL HX: Immunizations: up-to-date. Last normal menstrual period was 3 weeks ago. Usesbirth control pills. Last oral intake by patient was breakfast.SOCIAL HX: Never smoker. No alcohol use or drug use. No recent travel. No known contact with a sick 2 Clinical Report - Nurses [facility] Emergency Department [address] [place] [address] Phone #: ext- [phone] 10/07/2020 10:25 Patient: [...] Patient ready 3 Clinical Report - Nurses [facility] Emergency Department [address] [place] [address] Phone #: ext- [phone] 10/07/2020 10:25 Patient: OSWALDO YUAN Sex: F [...] flushed thoroughly. --11:50 10/07/20Kinjal Roe [facility]. --12:10/07/20 Viki Roe 4 Clinical Report - Nurses [facility] Emergency Department [address] [place] [address] Phone #: ext- [phone] 10/07/2020 10:25 Patient: OSWALDO YUAN Sex: F [...] PO Response: no adverse reaction. --13:43 10/07/20 Leona Villa R.N.12:00 10/07/20. BP: 118/76. MAP: 90. HR: 74. O2 saturation: 100%. --13:44 10/07/20 Leona Villa R.N.13:00 10/07/20. BP: 113/69. MAP: 83. HR: 73. O2 saturation: 100%. --13:44 10/07/20 Leona Villa R.N.13:30 10/07/20. BP: 116/77. MAP: 90. HR: 79. O2 saturation: 100%. --13:44 10/07/20 Leona Villa R.N.DISPOSITION / DISCHARGE 5 Clinical Report - Nurses [facility] Emergency Department [address] [place] [address] Phone #: ext- [phone] 10/07/2020 10:25 Patient: OSWALDO YUAN Sex: F : 1990 Age: 30y Departure time: late entry - 13:40 10/07/2020. Condition at departure: improved and stable. No learning barriers present. Discharge instructions provided and reviewed with the patient. Reviewed warnings (please see paper copy). Reviewed medication(s) (Flagyl). Reviewed referrals (FLOTATION TENDER HELPER). Patient verbalized understanding. Written instructions provided in Bulgarian. The patient was discharged by the physician veterinarian assistant. She was discharged home and unaccompanied [...] rce(s) Supporting Document(s) ID Date Data Source [id number] 10/07/2020 10:34:00 AM [facility] 1 Clinical Report - Physicians/Mid Levels [facility] Emergency Department [address] [place] [address] Phone #: ext- [phone] 10/07/2020 10:25 [id number] Sex: F : 1990 Age: 30y Time [...] normal. 2 Clinical Report - Physicians/Mid Levels [facility] Emergency Department [address] [place] [address] Phone #: ext- [phone] 10/07/2020 10:25 Patient: OSWALDO YUAN Sex: F [...] INDICATED 3 Clinical Report - Physicians/Mid Levels [facility] Emergency Department [address] [place] [address] Phone #: ext- [phone] 10/07/2020 10:25 Patient: [...] Male GFR Interprentation 20-49 yrs >60 mL/min Xnbhll43-87 yrs >56 mL/min Normal 60-69 yrs >49 mL/min Normal 70-79yrs>42 mL/min Normal 80 and above >35 mL/min Normal Female GFRInterpretation 20-39 yrs >60 mL/min Normal 40-49 yrs >58 mL/minNormal 50-59 yrs >51 mL/min Normal 60-69 yrs >45 mL/min Wwdzjf25-89 yrs >39 mL/min Normal 80 and above >32 mL/min NormalLipase: (BRIONNA: 10/07/2020 10:38) ( [facility] 10/07/2020 11:31) Final results Test Result Flag Units (Reference) LIPASE 24 U/L (13 - 60)Urinalysis: (BRIONNA: 10/07/2020 10:00) ( [facility] 10/07/2020 11:14) Final results Test Result Flag [...] Indicate 4 Clinical Report - Physicians/Mid Levels [facility] Emergency Department [address] [place] [address] Phone #: ext- [phone] 10/07/2020 10:25 Patient: [...] NEGATIVE (NORMAL: NEGAT { KIT LOT # [id number] ){ KIT EXP DATE 08.07.21 ){ PROCEDURAL CONTROL VALID ) US Pelvis: (BRIONNA: 10/07/2020 10:47) ( MsgRcvd 10/07/2020 12:38) Canceled US PELVIC Reason(s): Pain TRANSPORTATION: WC IV? O2? Oxygen?(No) Room: ED.PROGRESS AND PROCEDURESCourse of Care: 13:Oct 07 2020. Evaluation after observation. (Discussed exam findings and willtreat for PID and pt needs to follow up with FLOTATION TENDER HELPER for Fibroids and Ovarian Cyst). Patient counseled [...] medication. 5 Clinical Report - Physicians/Mid Levels [facility] Emergency Department [address] [place] [address] Phone #: ext- [phone] 10/07/2020 10:25 Patient: OSAWLDO YUAN Sex: F : 1990 Age: 30y Prescription Medications: Flagyl 500 mg tablet Take 1 tablet twice a day as directed for 7 days -- Dispense 14 tablet. Refills: 0. Substitution permitted. [id number] - [address], [place] [id number]. . Follow-up: Follow up with your doctor. Reason for referral: evaluation, treatment and Refer to [facility] for evaluation of Uterine Fibroid. Summary of care provided to patient. Understanding of the discharge instructions verbalized by patient.(Electronically signed by NOEL Odell 10/07/2020 21:48) Name Value Range Interpretation Code Description Data Aruna rce(s) Supporting Document(s) ID Date Data Source [id number] 10/11/2020 02:41:00 PM EST [facility] Name Value Range Interpretation Code Description Data [facility]) Supporting Document(s) CULTURE GENITAL [facility] _GENITAL CULTURE_$$[id number]$$[id number]$$ [id number] DATE/TIME: 10/11/2020 14:07Culture: CULTURE GENITAL Status: FinalGenital Culture, Routine: [id number] genital ilsa. Previous result entered on 10/10/2020 16:48 ET Routine genital ilsa.P1 Test performed by: [facility] LIMON #: [id number] [address] [place] [address] [id number] [facility] [id number] Director : Rehan Mc MD NPI #:[employer] : 10/11/[email or web address] REF 10/11/[id number].SENT REF ID Date Data Source [id number] 10/09/2020 08:36:00 PM [facility] Name Value Range Interpretation Code Description Data Aruna rce(s) Supporting Document(s) Chlamydia trachomatis rRNA [Presence] in Unspecified specimen by Probe and target amplification method Negative Negative [facility] Neisseria gonorrhoeae rRNA [Presence] in Unspecified specimen by Probe and target amplification method Negative Negative [facility] ID Date Data Source [id number] 10/09/2020 08:28:00 PM [facility] Name Value Range Interpretation Code Description Data Aruna rce(s) Supporting Document(s) Janet sp rRNA [Presence] in Vaginal fluid by DNA probe Negative N egative [facility] Gardnerella vaginalis rRNA [Presence] in Genital specimen by DNA probe Negative Negative [facility] Trichomonas vaginalis rRNA [Presence] in Genital specimen by DNA probe Negative Negative [facility] ID Date Data Source [id number] 10/07/2020 11:30:00 AM [facility] Name Value Range Interpretation Code Description Data Aruna rce(s) Supporting Document(s) Lipase [Enzymatic activity/volume] in Serum or Plasma 24 U/L 13 - 60 [facility] ID Date Data Source [id number] 10/07/2020 11:30:00 AM [facility] Name Value Range Interpretation Code Description Data Aruna rce(s) Supporting Document(s) COMPREHENSIVE METABOLIC PANEL [facility] COMPREHENSIVE METABOLIC PANEL Sodium [Moles/volume] in Serum or Plasma 133 mEq/L 134 - 153 L [facility] Potassium [Moles/volume] in Serum or Plasma 3.9 mEq/L 3.6 - 5.0 [facility] Chloride [Moles/volume] in Serum or Plasma 97 mEq/L 98 - 107 L [facility] Carbon dioxide, total [Moles/volume] in Serum or Plasma 30 MEQ/L 22 - 30 [facility] Glucose [Mass/volume] in Serum or Plasma 84 MG/DL 65 - 110 [facility] BUN 12 MG/DL 7 - [facility] Creatinine [Mass/volume] in Serum or Plasma 0.7 MG/DL 0.7 - 1.5 [facility] BUN/CREAT 17 8 - 27 [facility] al Protein [Mass/volume] in Serum or Plasma 6.8 G/DL 6.3 - 8.2 [facility] Albumin [Mass/volume] in Serum or Plasma 4.3 G/DL 3.9 - 5.0 [facility] Globulin [Mass/volume] in Serum by calculation 2.5 GM/DL 2.4 - 3.2 [facility] A/G RATIO 1.7 0.8 - 2.0 [facility] Calcium [Mass/volume] in Serum or Plasma 9.7 MG/DL 8.4 - 10.2 [facility] Bilirubin.total [Mass/volume] in Serum or Plasma <0.7 MG/DL 0.2 - 1.3 [facility] Alkaline phosphatase [Enzymatic activity/volume] in Serum or Plasma 42 U/L 38 - 126 [facility] Aspartate aminotransferase [Enzymatic activity/volume] in Serum or Plasma 25 U/L 5 - 40 [facility] Alanine aminotransferase [Enzymatic activity/volume] in Seru m or Plasma 16 U/L 7 - 56 [facility] Anion gap 3 in Serum or Plasma 6.0 mmol/L 8.0 - 16.0 L [facility] AGE 30 yrs [facility] al NON-AA GFR >60 mL/min [facility] ital AFR AMER GFR >60 mL/min [facility] Ho spital Male GFR In terprentation 20-49 [...] >32 mL/min Normal ID Date Data Source [id number] 10/07/2020 11:24:00 AM EST [facility] Name Value Range Interpretation Code Description Data Aruna rce(s) Supporting Document(s) Lactate [Moles/volume] in Serum or Plasma 1.0 MMOL/L 0.2 - 2.2 [facility] ID Date Data Source [id number] 10/07/2020 11:06:00 AM EST [facility] Name Value Range Interpretation Code Description Data Aruna rce(s) Supporting Document(s) CBC W/AUTOMATED DIFF [facility] COMPLETE BLOOD COUNT Leukocytes [#/volume] in Blood by Automated count 6.2 10^3/uL 4.2 - 1 1.0 [facility] Erythrocytes [#/volume] in Blood by Automated count 4.18 10^6/uL 4. 20 - 5.40 L [facility] Hemoglobin [Mass/volume] in Blood 12.1 g/dL 12.0 - 16.0 [facility] Hematocrit [Volume Fraction] of Blood by Automated count 36.7 % 3 7.0 - 47.0 L [facility] Erythrocyte mean corpuscular volume [Entitic volume] by Auto mated count 87.8 fL 81.0 - 101 [facility] Erythrocyte mean corpuscular hemoglobin [Entitic mass] by Automated count 28.9 pg 27.0 - 34.0 [facility] Erythrocyte mean corpuscular hemoglobin concentration [Mass/volume] by Automated count 33.0 g/dL 31.0 - 36.0 [facility] Erythrocyte distribution width [Ratio] by Automated count 12.5 % 11.5 - 14.5 [facility] Platelets [#/volume] in Blood by Automated count 268 10^3/uL 150 - 45 0 [facility] Platelet mean volume [Entitic volume] in Blood by Automated count 9.3 fL 7.4 - 10.4 [facility] Neutrophils/100 leukocytes in Blood by Automated count 38.1 % 37. 0 - 80.0 [facility] Lymphocytes/100 leukocytes in Blood by Manual count 51.3 % 25.0 - 40.0 H [facility] Monocytes/100 leukocytes in Blood by Automated count 8.4 % 3.0 - 8.0 H [facility] Eosinophils/100 leukocytes in Blood by Automated count 1.1 % 0.0 - 7.0 [facility] Basophils/100 leukocytes in Blood by Automated count 0.8 % 0.0 - 2.5 [facility] %IG 0.3 % 0.0 - 0.0 H [facility] al %NRBC 0.0 % 0.0 - 0.0 [facility] al Neutrophils [#/volume] in Blood by Automated count 2.37 10^3/uL 2.00 - 6.90 [facility] Lymphocytes [#/volume] in Blood by Automated count 3.19 10^3/uL 0.60 - 3.40 [facility] Monocytes [#/volume] in Blood by Automated count 0.52 10^3/uL 0.00 - 0.90 [facility] Eosinophils [#/volume] in Blood by Automated count 0.07 10^3/uL 0.00 - 0.70 [facility] Basophils [#/volume] in Blood by Automated count 0.05 10^3/uL 0.00 - 0.20 [facility] #IG 0.02 10^3/uL 0.00 - 0.10 [facility]ital #NRBC 0.00 10^3/uL 0.00 - 0.00 [facility] ospital MANUAL DIFF NOT INDICATED [facility] RBC MORPH NOT INDICATED [facility]ital ID Date Data Source [id number] 10/07/2020 12:47:00 PM EST [facility] Name Value Range Interpretation Code Description Data Aruna rce(s) Supporting Document(s) HCG URINE QUAL NEGATIVE NORMAL: NEGATIVE [facility] HCG URINE QL REENTER NEGATIVE NORMAL: NEGATIVE [facility] { KIT LOT # [id number] ){ KIT EXP DATE 08.07.21 ){ PROCEDURAL CONTROL VALID ) ID Date Data Source [id number] 10/07/2020 11:13:00 AM [facility] Name Value Range Interpretation Code Description Data Aruna rce(s) Supporting Document(s) [facility] URINALYS[facility] SOURCE R [facility] al COLOR yellow NORMAL: Yellow [facility] CLARITY clear NORMAL: Clear [facility] Specific gravity of Urine by Test strip 1.010 1.001 - 1.030 [facility] pH 7 5 - 9 [facility] Glucose [Mass/volume] in Urine by Test strip NORM NORMAL: Negat lin [facility] Bilirubin.total [Presence] in Urine by Test strip NEG NORMAL: Negative [facility] Ketones [Presence] in Urine by Test strip NEG NORMAL: Negative [facility] Protein [Mass/volume] in Urine by Test strip NEG NORMAL: Negat lin [facility] Nitrite [Presence] in Urine by Test strip NEG NORMAL: Negative [facility] BLOOD NEG NORMAL: Negative [facility] Leukocyte esterase [Presence] in Urine by Test strip NEG MACHO L: Negative [facility] Urobilinogen [Mass/volume] in Urine by Test strip NOR less jarrod n 1.0 mg/dL [facility] MICROSCOPIC Not Indicate [facility] Procedure Social History No Information
== END 2021-08-26 10:46 | disposition home or self-care (01) ==
LOC: M ED 08:27
DX: D25.9 Leiomyoma of uterus, unspecified (principal)
CPT/HCPCS: 76830; 76856; 84702; 93976; 96372; 99282; J1885